=== PATIENT | female | born 1960 | race Caucasian/White ===

== ENCOUNTER 2022-06-28 14:25 | Outpatient (REF) | payer OTHER, SELFPAY ==
--- NOTE | ~2022-06-28 | MM_ITS ---
EXAMINATION: MM SCREENING DIGITAL BREAST TOMOSYNTHESIS, BILATERAL CLINICAL INFORMATION: Screening. Asymptomatic. The lifetime risk of breast cancer based on the Tyrer-Cuzick Model is 4.1%. COMPARISON: Mammography: July 31, 2017 and October 01, 2014 TECHNIQUE: Digital breast tomosynthesis is performed in both the craniocaudal and mediolateral oblique views along with computer-aided detection (CAD). Synthesized 2D images are generated from the tomosynthesis. FINDINGS: The breasts are almost entirely fatty (ACR BI-RADS breast composition Category a). There are no significant masses, abnormal calcifications, or other abnormalities. MM/MM tomosynthesis screening BI IMPRESSION: No significant change in ASSESSMENT: BI-RADS 1: Negative RECOMMENDATION: Routine annual mammography screening. This patient's information was entered into a reminder system with a target due date for their next mammogram.
== END 2022-06-28 14:26 | disposition home or self-care (01) ==
LOC: HO.MAMMO 14:25
PROVIDERS: PCP Nurse Practitioner Adult Health; Visit Provider Obstetrics & Gynecology
DX: Z12.31 Encounter for screening mammogram for malignant neoplasm of breast (principal)
CPT/HCPCS: 77063; 77067

== ENCOUNTER 2022-07-25 11:19 | Outpatient (REF) | payer OTHER, SELFPAY ==
--- NOTE | ~2022-07-25 | XR_ITS ---
EXAMINATION: XR CHEST CLINICAL INFORMATION: Pneumonia COMPARISON: Previous chest x-ray most recent May [address] January 2019 TECHNIQUE: 2 views of the chest were obtained. FINDINGS: The cardiac and mediastinal contours are stable. The lungs are clear. No pleural effusion or pneumothorax. Degenerative changes of the spine. Bilateral shoulder replacements. XR/XR chest 2V IMPRESSION: No evidence for acute disease in the chest.
== END 2022-07-25 11:20 | disposition home or self-care (01) ==
LOC: HO.HMGCX 11:19
PROVIDERS: Visit Provider Internal Medicine
DX: J18.9 Pneumonia, unspecified organism (principal)
CPT/HCPCS: 71046

== ENCOUNTER 2022-11-07 16:17 | Outpatient (AMB) | payer OTHER, SELFPAY ==
--- NOTE | 2022-11-07 16:23 | MHC.OFFWIV ---
Intake Vital Signs 11/07/22 16:24 Height 5 ft 4 in BP 106/72 Blood Pressure Location Lt brachial Position Sitting Pulse 84 Pulse Source Pulse Oximeter Temp 95.7 F L Temp Source Temporal Artery Scan Pulse Oximetry (%) 98 Oxygen Delivery Method Room Air Intake Visit Reasons: EP fever, shortness of breath - masked (lobby) Intake Note: Pt is here c/o body aches, cough and chills earlier this week. Pt states she now has SOB since yesterday. Patient Tobacco Use Status: Never used Tobacco Allergies muscle relaxers Adverse Reaction (Mild, Uncoded 11/08/22 09:38) panic Medication List - Last Reconciled 11/08/22 by Elvis Damico MD albuterol sulfate 90 mcg/actuation (Ventolin HFA) 1 inh inhalation QID PRN aspirin 0 mg PO azithromycin take 500 mg today (day 1), then 250 mg for 4 days (days 2-5) PO buprenorphine HCl 16 mg sublingual DAILY gabapentin mg PO lisinopril 10 mg PO DAILY omeprazole 20 mg PO BID prednisone 60 mg (3 x 20 mg) PO DAILY venlafaxine ER 150 mg PO DAILY venlafaxine ER 37.5 mg PO DAILY venlafaxine ER 75 mg PO DAILY Do you need a note to return to daycare/school/sports/work: No HPI HPI Comments History of Present Illness Details Patient presents for a sick visit. Reporting symptoms of sinus congestion, sore throat and difficulty swallowing. Low-grade fever. No family member is sick. No recent travel. Patient reports symptoms of malaise and fatigue. [facility] Social History Patient Tobacco Use Status: Never used Tobacco Physical Exam Vital Signs: Last Vital Signs Temp 95.7 F L 11/07/22 16:24 Pulse 84 11/07/22 16:24 BP 106/72 11/07/22 16:24 Pulse Ox 98 11/07/22 16:24 Oxygen Delivery Method Room Air 11/07/22 16:24 Const General: cooperative and healthy appearing Nutritional Appearance: well nourished Orientation/consciousness: patient oriented x3 Limitations: no limitations HEENT Head: Yes normal to inspection Eyes General: appearance normal, both eyes and all related structures Neck Neck: Yes normal visual inspection Chest Chest palpation & inspection: normal palpation of entire chest wall Resp Effort & Inspection: normal respiratory effort Neuro General: patient oriented x3 Assessment & Plan Assessment & Plan (1) Upper respiratory tract infection: Code(s): J06.9 - Acute upper respiratory infection, unspecified Plan: Antibiotics ordered. Increase fluid intake. Tylenol for aches and pains. If symptoms worsen, follow-up here for a recheck. Medications: New prednisone 60 mg (3 x 20 mg) PO DAILY 9 tabs 0RF Refilled albuterol sulfate 90 mcg/actuation (Ventolin HFA) 1 inh inhalation QID PRN 8.5 grams 1RF shortness of breath or wheezing azithromycin take 500 mg today (day 1), then 250 mg for 4 days (days 2-5) PO 6 tabs 0RF Coding Level of Care Code Est Pt Level 3 (50529) Diagnoses Upper respiratory tract infection J06.9
[2022-11-07 16:24] VITALS: BP 106/72; PULSE 84; TEMP 35.4; O2SAT 98
== END 2022-11-07 16:31 | disposition home or self-care (01) ==
LOC: HO.HMGWI 16:18
PROVIDERS: PCP Nurse Practitioner Adult Health
DX: J06.9 Acute upper respiratory infection, unspecified (principal)
CPT/HCPCS: 99213

== ENCOUNTER 2022-11-19 14:48 | Outpatient (AMB) | payer OTHER, SELFPAY ==
--- NOTE | 2022-11-19 15:50 | AM.OFFWIN_ITS ---
Intake Vital Signs 11/19/22 15:51 Height 5 ft 4 in Weight 255 lb BMI 43.8 BP 140/80 H Blood Pressure Location Lt brachial Position Sitting Pulse 110 H Pulse Source Pulse Oximeter Temp 97.8 F Temp Source Temporal Artery Scan Pulse Oximetry (%) 100 Oxygen Delivery Method Room Air Intake Visit Reasons: EP ?bronchitis [phone] Intake Note: pt is here for c/o bronchitis with phelm and has low grade temp at night Patient Tobacco Use Status: Never used Tobacco Allergies muscle relaxers Adverse Reaction (Mild, Uncoded 11/19/22 15:51) panic Do you need a note to return to daycare/school/sports/work: No HPI EP ?bronchitis [phone] HPI Details 62-year-old female presents to the office for a sick visit. Patient is reporting that she has not fully recovered. Continues to have wheezing and shortness of breath. The wheezing is worse at night. The prednisone added help but symptoms returned when she stopped taking the medication. Appetite is normal. No urinary incontinence. [facility] Social History Patient Tobacco Use Status: Never used Tobacco Physical Exam Vital Signs: Last Vital Signs Temp 97.8 F 11/19/22 15:51 Pulse 110 H 11/19/22 15:51 BP 140/80 H 11/19/22 15:51 Pulse Ox 100 11/19/22 15:51 Oxygen Delivery Method Room Air 11/19/22 15:51 BMI result Body Mass Index 43.8 Const General: cooperative and healthy appearing Nutritional Appearance: well nourished Orientation/consciousness: patient oriented x3 Limitations: no limitations HEENT Head: Yes normal to inspection Eyes General: appearance normal, both eyes and all related structures Neck Neck: Yes normal visual inspection Chest Chest palpation & inspection: normal palpation of entire chest wall Resp Other: Scattered wheeze bilaterally. Neuro General: patient oriented x3 Assessment & Plan Assessment & Plan (1) Upper respiratory tract infection: Code(s): J06.9 - Acute upper respiratory infection, unspecified Plan: Prednisone has been added to the regimen again. Albuterol has been continued. Patient was advised to come in the morning for a chest x-ray. Medications: New prednisone 6 pills by mouth day 1, 6 pills by mouth day 2, 5 pills by mouth day 3, 4 pills by mouth day 4, 3 pills by mouth day 5, 2 pills by mouth day 6, 1 pill by mouth day 7 and 1 pill by mouth day 8. 10 mg PO DAILY 28 tabs 0RF Coding Level of Care Code Est Pt Level 4 (93380) Diagnoses Upper respiratory tract infection J06.9
[2022-11-19 15:51] VITALS: BP 140/80; PULSE 110; TEMP 36.6; O2SAT 100; BMI 43.8
== END 2022-11-19 16:31 | disposition home or self-care (01) ==
PROVIDERS: PCP Nurse Practitioner Adult Health; Visit Provider Internal Medicine
DX: J06.9 Acute upper respiratory infection, unspecified (principal)
CPT/HCPCS: 99214

== ENCOUNTER 2024-09-18 17:53 | Emergency (ER) | payer OTHER, SELFPAY ==
--- NOTE | ~2024-09-18 | CT_ITS ---
CLINICAL HISTORY: Severe Abd pain, bloated, R O SBO, pancrea,perf CT abdomen and pelvis with contrast Comparison: None Findings: No consolidation or effusion. The gallbladder is surgically absent. The solid organs are within normal limits. No hydronephrosis or hydroureter. No bowel obstruction, pneumoperitoneum, or pneumatosis. There are postsurgical changes compatible with gastric bypass. There is mild bowel wall thickening involving the afferent limb of jejunum distal to the gastro jejunostomy site with mild adjacent edema. This bowel loop is underdistended. Mild edema also identified adjacent to the afferent limb of the stomach. There is minimal fluid along the right pericolic gutter. Bilateral hip prostheses are in place, producing artifact which limits evaluation of the pelvic structures. The bladder and majority of the uterus are not well visualized on this examination due to artifact. Minimal free fluid present within the pelvis. 2.7 cm low-attenuation right adnexal cyst. Normal appendix. No acute fracture visualized. There is grade 1 anterolisthesis of L4 on L5. Multilevel degenerative disc disease/vacuum disc phenomenon present at the thoracolumbar spine. IMPRESSION: 1. Postsurgical changes compatible with gastric bypass with mild edema adjacent to the afferent limb of the stomach and mild bowel wall thickening and adjacent edema involving the loop of jejunum distal to the gastro jejunostomy site. These findings may be related to a nonspecific gastro enteritis. No bowel obstruction demonstrated. No free intraperitoneal air. 2. Minimal fluid identified along the right pericolic gutter and also dependently within the pelvis, possibly reactive in etiology given the inflammatory changes at the upper abdomen. This document has been electronically signed by: Luis Govea MD on 09/18/2024 23:05:14
[2024-09-18 18:09] VITALS: BP 114/96; BP 131/100; PULSE 71; PULSE 80; RESP 18; TEMP 36.7; O2SAT 97; O2SAT 99; BMI 44.5
[2024-09-18 18:17] VITALS: BP 134/84; PULSE 81; RESP 20; O2SAT 100
--- NOTE | 2024-09-18 18:55 | ED_ITS ---
HPI - Abdominal Pain General Chief Complaint: Abdominal Pain Stated Complaint: ?bowel obstruction Time Seen by Provider: 09/18/24 18:47 Source: patient Mode of arrival: ambulatory Limitations: no limitations History of Present Illness ED Provider: Dr. Cristobal Shah HPI narrative: 64-year-old female with a history of osteoarthritis, gastric bypass 2022 in [place], cholecystectomy 2023 on Zepbound ( GLP-1) for weight loss who presents emergency department for evaluation of intermittent abdominal cramping x1 week. Patient states she drank an ice coffee at around 14:00 hours and then developed sudden onset of severe , epigastric and diffuse abdominal pain with a bloated sensation. Patient states she has been constipated over the last week but did have a small bowel movement this morning. Her pain is greater than 10/10. She has nausea with no vomiting. This the patient's 1st episode of this type of pain. The patient states that she has been on Zepbound for proximally 3 months in his lost 38 lb.The patient does have a history of opiate use disorder and is on buprenorphine. Related Data Home Medications ?Medication ?Instructions ?Recorded ?Confirmed gabapentin 300 mg capsule mg PO 01/09/22 11/08/22 lisinopril 10 mg tablet 10 mg PO DAILY 07/25/22 11/08/22 omeprazole 20 mg capsule,delayed 20 mg PO BID 07/25/22 11/08/22 release venlafaxine 150 mg 150 mg PO DAILY 07/25/22 11/08/22 capsule,extended release 24 hr venlafaxine 37.5 mg 37.5 mg PO DAILY 07/25/22 11/08/22 capsule,extended release 24 hr venlafaxine 75 mg capsule,extended 75 mg PO DAILY 07/25/22 11/08/22 release 24 hr Previous Rx's ?Medication ?Instructions ?Recorded albuterol sulfate 90 mcg/actuation 1 inh inhalation QID PRN shortness 11/07/22 aerosol inhaler (Ventolin HFA) of breath or wheezing #8.5 grams prednisone 10 mg tablet 10 mg PO DAILY #28 tabs 11/19/22 omeprazole 40 mg capsule,delayed 40 mg PO DAILY #90 caps 09/19/24 release oxycodone 5 mg tablet 5 mg PO BID PRN pain #8 tabs 09/19/24 Allergies Allergy/AdvReac Type Severity Reaction Status Date / Time muscle relaxers AdvReac Mild panic Uncoded 09/18/24 18:16 Review of Systems Review of Systems Yes all other systems are reviewed and are negative [facility] Past Medical History [facility] Narrative: Social history: She is Social History Social History Alcohol intake: never Patient Tobacco Use Status: Never used Tobacco Smoked in Last 30 Days: No Advance Directives: No Advance Directives Information Provided: Yes Physical Exam ED Vital Signs: Vital Signs - 24 hr 09/18/24 18:09 09/18/24 18:17 09/18/24 19:35 Temperature 98.1 F Pulse Rate 80 81 81 Respiratory Rate 18 20 18 Blood Pressure 114/96 H 134/84 144/68 H Pulse Oximetry 97 100 97 Oxygen Delivery Method Room Air Room Air Room Air 09/18/24 20:21 09/18/24 23:47 09/19/24 00:00 Temperature 99.8 F 99.6 F Pulse Rate 77 92 100 Respiratory Rate 18 20 20 Blood Pressure 100/61 126/85 139/79 Pulse Oximetry 96 95 96 Oxygen Delivery Method Room Air Room Air Room Air BMI result Body Mass Index 44.5 Vital signs were normal Exam: General: Awake, alert , appears to be in severe distress secondary to her pain, weight 114 kg, elevated BMI 44.5 kg per m2 Head: Normocephalic, atraumatic EENT: PERRL, Lids normal, sclera normal, conjunctiva normal, nose normal , ears normal, throat without erythema or exudates Neck: Supple, no adenopathy Lung: breath sounds symmetric, no wheezing, rales or rhonchi Chest: symmetric movement, nontender Heart: regular rate and rhythm, normal S1, S2 no murmurs or rubs Abdomen: Soft, distended, hyperactive bowel sounds, moderate to severe diffuse abdominal tenderness Back: no vertebral tenderness, no CVAT Extremities: no deformities, moves all extremities symmetrically Neuro: Awake, alert, oriented, normal speech, cranial nerves intact, moves all extremities symmetrically Psych: Pleasant, cooperative Medical Decision Making Medical Decision Making [facility] Narrative: 64-year-old female with a history of osteoarthritis, gastric bypass 2022 in [place], cholecystectomy 2023 on Zepbound ( GLP-1) for weight loss who presents emergency department for evaluation of intermittent abdominal cramping x1 week. Patient states she drank an ice coffee at around 14:00 hours and then developed sudden onset of severe , epigastric and diffuse abdominal pain with a bloated sensation. Patient states she has been constipated over the last week but did have a small bowel movement this morning. Her pain is greater than 10/10. She has nausea with no vomiting. This the patient's 1st episode of this type of pain. The patient states that she has been on Zepbound for proximally 3 months in his lost 38 lb.The patient does have a history of opiate use disorder and is on buprenorphine. Vital signs were unremarkable. Examination revealed that she was in distress secondary to her pain, she has diffuse abdominal tenderness with hyperactive bowel sounds, she does appear to be bloated. Differential diagnosis: ?Includes but is not limited to pancreatitis, bowel obstruction, bowel perforation, internal incarcerated hernia, Course: 20:48 The patient patient got minimal relief of her pain with Dilaudid 1 mg IV therefore she was given a 2nd dose of Dilaudid 2 mg IV. The patient's blood work and CT scan are pending. At the end of my shift, the patient's care was turned over to my colleague, Dr. Yana Bustos. I received sign-out from my colleague Dr. Shah My interpretation of labs: Patient's white blood cell count 14.6, normal hematology and chemistry. LFTs are slightly bumped, AST 62, ALT 85. Normal lipase. CT scan of the abdomen shows the postsurgical changes compatible with a gastric bypass. Patient has mild edema adjacent to the a friend limb of the stomach and mild bowel wall thickening. Findings may be related to nonspecific gastroenteritis, no small bowel obstruction, no free air. I discussed the above-mentioned with the patient And her . Patient states that overall she feels better but she still having abdominal pain despite several doses of Dilaudid. I discussed with the patient that we can admit her for pain control and possibly a GI consult in the morning. Patient states that she prefers to be discharged home, states she would like to sleep in her own bed. Patient states that if she does not get any better, she will return. However, she would like to try going home. Patient states that she has a gastroenterology at [facility]. Prior to discharge, patient requesting 1 more dose of pain medication. Patient was also given a dose of Protonix. Patient states that she used to take omeprazole and used to control the abdominal pain fairly well. Patient has been out of omeprazole for several months. Also, patient states that a few months ago she had an upper endoscopy done, she was told that she has an ulcer. I considered starting the patient on antibiotics for density scan finding of possible gastroenteritis. However, patient has not had any vomiting or diarrhea. Admission/Observation Consideration of admission/observation: Escalation of care including admission/observation considered (Yes) admission was recommended and offered, patient respectively declined at this time. Prefers to go home and agrees to return to the hospital and consider admission if she has no improvement Lab Data MDM Lab Attestation statement: I reviewed the patient's lab results. 09/18/24 21:13 09/18/24 21:13 Labs: Lab Results 09/18/24 Range/Units 21:13 WBC 14.6 H (4.8-10.8) X10*3/uL RBC 4.49 (4.20-5.50) X10*6/uL Hgb 14.0 (12.0-16.0) g/dl Hct 41.2 (37.0-47.0) % MCV 91.8 (80.0-98.0) fL MCH 31.2 (27.0-33.0) pg MCHC 34.0 (31.0-35.0) g/dl RDW 12.9 (11.0-16.0) % Plt Count 300 (160-400) X10*3/uL MPV 9.0 L (9.4-12.3) fL Immature Gran % (Auto) 0.3 (0.0-0.4) % Neut % (Auto) 90.4 H (45-73) % Lymph % (Auto) 4.7 L (20-40) % [place] % (Auto) 3.9 (2-11) % Eos % (Auto) 0.2 (0-4) % Baso % (Auto) 0.5 (0-2) % Lymph # (Auto) 0.7 L (1.2-4.9) X10*3/uL [place] # (Auto) 0.6 (0.1-1.2) X10*3/uL Eos # (Auto) 0.0 (0.0-0.4) X10*3/uL Baso # (Auto) 0.1 (0.0-0.2) X10*3/uL Abs Immat Gran (auto) 0.04 H (0.00-0.03) X10*3/uL Absolute Neuts (auto) 13.2 H (2.0-8.3) x10*3/uL Absolute Nucleated RBC 0.000 (0.0-0.012) X10*3/uL Nucleated RBC % (auto) 0.0 (0.0-0.2) /100WBC Smear Tech's Comments VERIFIED ESR 10 (0-20) MM/HR PT 11.2 (10.9-12.4) SEC INR 1.0 (0.9-1.1) APTT 24.0 L (26.0-36.8) SEC Sodium 137 (135-145) mmol/L Potassium 4.4 (3.3-5.1) mmol/L Chloride 100 (96-108) mmol/L Carbon Dioxide 27 (22-29) mmol/L Anion Gap 14 (12-20) BUN 13 (9-16) mg/dL Creatinine 0.96 (0.5-1.4) mg/dL Estim Creat Clear Calc 73.9 Estimated GFR 59 Random Glucose 107 (60-115) mg/dL Lactic Acid 1.0 (0.5-2.0) mmol/L Calcium 9.5 (8.4-10.2) mg/dL Magnesium 1.9 (1.6-2.6) mg/dL Total Bilirubin 0.7 (0.0-1.0) mg/dL AST 62 H (5-31) U/L ALT 85 H (0-31) U/L Alkaline Phosphatase 75 (39-117) U/L C-Reactive Protein 0.34 (< or = 0.50) mg/dL Total Protein 6.9 (6.5-8.0) g/dL Albumin 4.3 (3.5-5.0) g/dL Lipase 63 (8-78) U/L Independent Interpretation I performed an independent interpretation of an: CT Scan Radiology Impression Discussion of test interpretation with radiology: I have reviewed the radiologist's reading. Radiologist Impression: 1. Postsurgical changes compatible with gastric bypass with mild edema adjacent to the afferent limb of the stomach and mild bowel wall thickening and adjacent edema involving the loop of jejunum distal to the gastro jejunostomy site. These findings may be related to a nonspecific gastro enteritis. No bowel obstruction demonstrated. No free intraperitoneal air. 2. Minimal fluid identified along the right pericolic gutter and also dependently within the pelvis, possibly reactive in etiology given the inflammatory changes at the upper abdomen. Medications Administered Discontinued Medications Generic Name Dose Route Start Last Admin Trade Name Freq PRN Reason Stop Dose Admin Hydromorphone HCl 1 mg 09/18/24 18:57 09/18/24 19:24 Hydromorphone Hcl 1 Mg/Ml Syringe IVPUSH 09/18/24 18:58 1 mg ONCE STA Administration Protocol Hydromorphone HCl 2 mg 09/18/24 20:47 09/18/24 21:12 Hydromorphone Hcl 2 Mg/Ml Vial IVPUSH 09/18/24 20:48 2 mg ONCE ONE Administration Protocol Sodium Chloride 1,000 mls @ 999 mls/hr 09/18/24 18:57 09/18/24 21:19 Ns IV 09/18/24 19:57 Infused .Q1H1M STA Infusion Iohexol 100 ml 09/18/24 21:55 09/18/24 21:56 Iohexol 350 Mg/Ml 100 Ml Infus..Btl IV 09/18/24 21:56 85 ml ONCE ONE Administration Ketorolac Tromethamine 15 mg 09/18/24 18:57 09/18/24 19:24 Ketorolac Tromethamine 15 Mg/Ml Vial IVPUSH 09/18/24 18:58 15 mg ONCE STA Administration Ondansetron HCl 4 mg 09/18/24 18:57 09/18/24 19:24 Ondansetron Hcl 4 Mg/2 Ml Vial IVPUSH 09/18/24 18:58 4 mg ONCE ONE Administration Critical Care Time Critical Care Time Critical Care Time: Yes Total Critical Care Time: 60 Attestation: I have personally provided critical care time. Time includes review of lab data, radiology results, discussion with consultants, and monitoring for potential decompensation. Intervention performed as documented. Discharge Plan Discharge Clinical Impression: Abdominal pain, Gastroenteritis Patient Disposition: Home, Self-Care Instructions: Abdominal Pain (ED) Additional Instructions: Please follow-up with your primary care physician tomorrow. If you have any worsening or new symptoms, please return to the emergency room or call 911 Prescriptions: New oxycodone 5 mg tablet 5 mg PO BID PRN (Reason: pain) Qty: 8 0RF Rx Instructions: Partial Fill upon patient request. omeprazole 40 mg capsule,delayed release(DR/EC) 40 mg PO DAILY Qty: 90 0RF No Action venlafaxine 150 mg capsule,extended release 24hr 150 mg PO DAILY venlafaxine 37.5 mg capsule,extended release 24hr 37.5 mg PO DAILY venlafaxine 75 mg capsule,extended release 24hr 75 mg PO DAILY omeprazole 20 mg capsule,delayed release(DR/EC) 20 mg PO BID lisinopril 10 mg tablet 10 mg PO DAILY albuterol sulfate [Ventolin HFA] 90 mcg/actuation HFA aerosol inhaler 1 inh inhalation QID PRN (Reason: shortness of breath or wheezing) Qty: 8.5 1RF gabapentin 300 mg capsule PO prednisone 10 mg tablet 10 mg PO DAILY Qty: 28 0RF Rx Instructions: 6 pills by mouth day 1, 6 pills by mouth day 2, 5 pills by mouth day 3, 4 pills by mouth day 4, 3 pills by mouth day 5, 2 pills by mouth day 6, 1 pill by mouth day 7 and 1 pill by mouth day 8. Print Language: Citizen Of [place]
--- NOTE | 2024-09-18 19:05 | PC.NURSE ---
Assumed care of this Pt at this time.
[2024-09-18] MEDS: HYDROmorphone HCl 1 MG/ML SYRINGE IVPUSH (19:24)
[2024-09-18] MEDS: Ketorolac Tromethamine 15 MG/ML VIAL IVPUSH (19:24)
[2024-09-18] MEDS: ondansetron HCL 4 MG/2 ML VIAL IVPUSH (19:24)
[2024-09-18] MEDS: 0.9 % Sodium Chloride 1,000 ML 999 ML IV (19:25)
[2024-09-18 19:35] VITALS: BP 144/68; PULSE 81; RESP 18; O2SAT 97
[2024-09-18 20:21] VITALS: BP 100/61; PULSE 77; RESP 18; O2SAT 96
[2024-09-18] MEDS: HYDROmorphone HCl 2 MG/ML VIAL IVPUSH (21:12)
[2024-09-18 21:21] LABS: Basophils Absolute Auto 0.1 X10*3/uL (0.0-0.2); Basophils Percent Auto 0.5 % (0-2); Eosinophils Percent Auto 0.2 % (0-4); Hematocrit 41.2 % (37.0-47.0); Imm Gran Abs Auto 0.04 X10*3/uL (0.00-0.03); Imm Gran Pct Auto 0.3 % (0.0-0.4); Lymphocytes Absolute Auto 0.7 X10*3/uL (1.2-4.9); Lymphocytes Percent Auto 4.7 % (20-40); MANUAL DIFF FLAG SCAN; Mean Corpuscular Hemoglobin 31.2 pg (27.0-33.0); Mean Corpuscular Volume 91.8 fL (80.0-98.0); Monocytes Absolute Auto 0.6 X10*3/uL (0.1-1.2); Monocytes Percent Auto 3.9 % (2-11); Neutrophils Absolute Auto 13.2 x10*3/uL (2.0-8.3); Neutrophils Percent Auto 90.4 % (45-73); Platelet Count 300 X10*3/uL (160-400); Red Blood Count 4.49 X10*6/uL (4.20-5.50); Red Cell Distribution Width 12.9 % (11.0-16.0); SCAN SMEAR FLAG 1; White Blood Count 14.6 X10*3/uL (4.8-10.8)
[2024-09-18 21:27] LABS: Prothrombin Time 11.2 SEC (10.9-12.4)
[2024-09-18 21:33] LABS: Alanine Aminotransferase 85 U/L (0-31); Albumin Level 4.3 g/dL (3.5-5.0); Alkaline Phosphatase 75 U/L (39-117); Anion Gap 14 (12-20); Aspartate Amino Transferase 62 U/L (5-31); Bilirubin Total 0.7 mg/dL (0.0-1.0); Blood Urea Nitrogen 13 mg/dL (9-16); C Reactive Protein 0.34 mg/dL (< or = 0.50); Calcium 9.5 mg/dL (8.4-10.2); Carbon Dioxide 27 mmol/L (22-29); Chloride 100 mmol/L (96-108); Creatinine Clr Calc Pharmacy 73.9; Estimated Glomerular Filt Rate 59; Glucose Random 107 mg/dL (60-115); Lipase 63 U/L (8-78); Magnesium 1.9 mg/dL (1.6-2.6); Potassium 4.4 mmol/L (3.3-5.1); Sodium 137 mmol/L (135-145); Total Protein 6.9 g/dL (6.5-8.0)
--- NOTE | 2024-09-18 21:39 | PC.NURSE ---
Pt ambulating to bathroom w/ assistance of spouse slow steady gait
[2024-09-18 21:40] LABS: SLIDE REVIEW VERIFIED
[2024-09-18] MEDS: iohexoL 350 MG/ML 100 ML INFUS..BTL IV (21:56)
[2024-09-18 22:10] LABS: Erythrocyte Sedimentation Rate 10 MM/HR (0-20)
[2024-09-18 23:47] VITALS: BP 126/85; PULSE 92; RESP 20; TEMP 37.7; O2SAT 95
[2024-09-19] VITALS: BP 139/79; PULSE 100; RESP 20; TEMP 37.6; O2SAT 96
[2024-09-19] MEDS: Morphine Sulfate 4 MG/ML CARTRIDGE IVPUSH (01:54)
[2024-09-19] MEDS: Magnesium Hydrox/Alum Hydrox 30 ML ORAL.SUSP PO (01:55)
[2024-09-19] MEDS: Pantoprazole Sodium 40 MG/10 ML VIAL IVPUSH (01:55)
[2024-09-19] MEDS: Lidocaine HCl Viscous 2 % 15 ML SOLUTION MUCOUS MEM (01:55)
[2024-09-19 02:16] VITALS: BP 139/79; PULSE 100; RESP 20; TEMP 37.6; O2SAT 96
== END 2024-09-19 02:18 | disposition home or self-care (01) ==
PROVIDERS: Emergency Medicine Emergency Medical Services; Emergency Provider Emergency Medicine
DX: K52.9 Noninfective gastroenteritis and colitis, unspecified (principal); R10.9 Unspecified abdominal pain; R10.13 Epigastric pain; R11.0 Nausea
CPT/HCPCS: 36415; 74177; 80053; 83605; 83690; 83735; 85025; 85610; 85652; 85730; 86140; 96361; 96374; 96375; 96376; 99285; J1171; J1885; J2270; J2405; J2470; Q9967

== ENCOUNTER → 2024-09-18 18:58 | Outpatient (BNV) | payer OTHER, SELFPAY | PROVIDERS: Emergency Provider Emergency Medicine; Visit Provider Radiology Diagnostic Radiology | DX: R18.8 Other ascites (principal) | CPT/HCPCS: 74177 ==

== ENCOUNTER 2024-09-19 12:39 | Emergency (ER) | payer OTHER, SELFPAY ==
[2024-09-19] VITALS (15 sets, daily range): BP systolic 110–154; BP diastolic 71–95; PULSE 88–124; RESP 20–24; TEMP 36.9–38.6; O2SAT 90–97; BMI 38.1
--- NOTE | ~2024-09-19 | CT_ITS ---
CLINICAL HISTORY: bariactric, epigastric pain, N V CT abdomen without contrast Comparison: CT/SR - CT ABDOMEN PELVIS W IV CON - 09/18/24 21:52 EDT Findings: Multiple foci of atelectasis at the lung bases. Small hiatal hernia. Moderate pancreatic volume loss. Remaining abdominal organs are unremarkable. Prior cholecystectomy. There is contrast present to the level of the proximal colon. There is no evidence of high-grade small bowel obstruction. There is moderate fecal retention within the colon. Status post gastric bypass. Interval worsening of edema within the mesentery adjacent to the stomach and proximal jejunum. Multiple tiny pockets of free intraperitoneal air, new since the prior study. Thickening of the wall of the jejunum at the level of the left upper quadrant with interval worsening since the prior study. There is a small amount of abdominal and pelvic free fluid with interval increase since the prior study. No acute fracture. IMPRESSION: 1. There is a small amount of free intraperitoneal air compatible with perforated viscus or anastomotic leak. 2. There is enteritis of the proximal jejunum at the level of the left upper quadrant. 3. There is a small amount of abdominal and pelvic free fluid with interval increase since the prior study. This document has been electronically signed by: Rosy Castelan MD on 09/19/2024 20:49:01
--- NOTE | ~2024-09-19 | XR_ITS ---
CLINICAL HISTORY: epigastric pain 2 view chest x-ray Comparison: None Findings: No consolidation or effusion. Heart size is normal. Status post bilateral shoulder replacement. No acute fracture. IMPRESSION: 1. No acute findings. This document has been electronically signed by: Rosy Castelan MD on 09/19/2024 13:57:10
--- NOTE | 2024-09-19 12:57 | ED.ABDPAIN ---
HPI - Abdominal Pain General Chief Complaint: Abdominal Pain Stated Complaint: ABD PAIN/BLOATING,SEEN T-1 FOR SAME PER EMS Time Seen by Provider: 09/19/24 12:57 Source: patient and family ( at bedside corroborating history) Mode of arrival: EMS Limitations: no limitations History of Present Illness ED Provider: Eliazar Bentley PA-C HPI narrative: 64-year-old female with medical history of osteoarthritis, gastric bypass 2002 in [place], cholecystectomy 2023 on Zepbound ( GLP-1) for weight loss, HX of opiate use disorder on buprenorphine presents to the ED due to abdominal pain. Patient was seen in the department yesterday for sudden onset of severe abdominal pain with bloating and nausea. Patient had a workup containing CT abdomen with IV contrast which revealed some mild edema and mild bowel wall thickening showing possible gastroenteritis. Patient was given several doses of Dilaudid for pain management, and offered for admission for GI consult but declined stating that she would like to go home for self care and follow up outpatient. Patient states she got home around 230 this morning from the Department and went to sleep in a recliner chair with heating pad on her stomach. She states she woke up sometime this morning and started to feel some abdominal pain which she took a dose of oxycodone which was prescribed to her from the Department yesterday. She states after she took a dose of oxycodone her pain became significantly worse, with severe epigastric pain radiating into breast to bone and to her her left shoulder with onset of cold sweats. She states she moved her bowels this morning but was very small volume. Denies shortness of breath denies bloody or bilious vomiting denies black/tarry stool denies urinary symptoms. MD elicited complaint: abdominal pain Pertinent past history: other (Gastric bypass in 2002) Onset (ago): hour(s) Pain Consistency: constant Location: epigastric Severity: moderate Quality: cramping and fullness Radiation: other (Left shoulder, breastbone) Relieving factors: nothing Associated symptoms: nausea and other (Cold sweat) Treatments prior to arrival: other (venlafaxine, gabapentin, 5mg oxycodone around 3am ) Related Data Home Medications ?Medication ?Instructions ?Recorded ?Confirmed gabapentin 300 mg capsule mg PO 01/09/22 11/08/22 lisinopril 10 mg tablet 10 mg PO DAILY 07/25/22 11/08/22 omeprazole 20 mg capsule,delayed 20 mg PO BID 07/25/22 11/08/22 release venlafaxine 150 mg 150 mg PO DAILY 07/25/22 11/08/22 capsule,extended release 24 hr venlafaxine 37.5 mg 37.5 mg PO DAILY 07/25/22 11/08/22 capsule,extended release 24 hr venlafaxine 75 mg capsule,extended 75 mg PO DAILY 07/25/22 11/08/22 release 24 hr Previous Rx's ?Medication ?Instructions ?Recorded albuterol sulfate 90 mcg/actuation 1 inh inhalation QID PRN shortness 11/07/22 aerosol inhaler (Ventolin HFA) of breath or wheezing #8.5 grams prednisone 10 mg tablet 10 mg PO DAILY #28 tabs 11/19/22 omeprazole 40 mg capsule,delayed 40 mg PO DAILY #90 caps 09/19/24 release oxycodone 5 mg tablet 5 mg PO BID PRN pain #8 tabs 09/19/24 Allergies Allergy/AdvReac Type Severity Reaction Status Date / Time muscle relaxers AdvReac Mild panic Uncoded 09/19/24 12:55 Review of Systems Review of Systems CONST: Negative for fever, body aches and chills. POS cold sweats HENT: Negative for neck pain/stiffness, headache, congestion, sore throat, swelling. EYES: Negative for discharge/pain or vision changes. RESP: Negative for cough/hemoptysis and shortness of breath. CV: Negative chest pain, difficulty breathing, palpitations. POS chest pain ABD: POS pain, nausea. Negative vomiting. : Negative increase frequency, dysuria, blood in urine or stool. MUSC: Negative for muscle aches, edema. SKIN: Negative rash, lesions/sores. NEURO: Negative headache, dizziness, weakness. Yes all other systems are reviewed and are negative PMFSH Past Medical History Attestation statement: The following information was validated with the patient. Source: old records reviewed, obtained from family ( at bedside) and nursing notes reviewed Social History Social History Alcohol intake: never Patient Tobacco Use Status: Never used Tobacco Smoked in Last 30 Days: No Use of substances other than those prescribed or required for medical reasons: No Advance Directives: No Advance Directives Information Provided: Yes Do you have a plan to hurt others: No Plan Patient : No Physical Exam ED Vital Signs: Vital Signs - 24 hr 09/19/24 12:52 09/19/24 12:56 09/19/24 13:45 Temperature 98.5 F 98.5 F Pulse Rate 88 88 Respiratory Rate 20 20 20 Blood Pressure 145/79 H 145/79 H Pulse Oximetry 95 95 Oxygen Delivery Method Room Air Room Air Oxygen Flow Rate 09/19/24 14:11 09/19/24 15:15 09/19/24 15:15 Temperature Pulse Rate 93 Respiratory Rate 20 24 H Blood Pressure 144/81 H Pulse Oximetry 90 L 97 Oxygen Delivery Method Room Air Nasal Cannula Oxygen Flow Rate 3 09/19/24 16:40 09/19/24 16:56 09/19/24 19:20 Temperature 98.4 F 100.4 F Pulse Rate 106 H 124 H Respiratory Rate 20 24 H 20 Blood Pressure 154/90 H 146/95 H Pulse Oximetry 95 93 Oxygen Delivery Method Nasal Cannula Room Air Oxygen Flow Rate 3 09/19/24 19:51 09/19/24 21:54 09/19/24 22:03 Temperature 101.4 F H Pulse Rate 123 H 123 H Respiratory Rate 21 H 20 Blood Pressure 153/91 H 134/80 131/80 Pulse Oximetry 96 95 Oxygen Delivery Method Room Air Nasal Cannula Oxygen Flow Rate 09/19/24 22:18 09/19/24 22:49 Temperature 99.8 F Pulse Rate 110 H 101 H Respiratory Rate 22 H 22 H Blood Pressure 133/74 138/85 Pulse Oximetry 94 94 Oxygen Delivery Method Nasal Cannula Nasal Cannula Oxygen Flow Rate BMI result Body Mass Index 38.1 GENERAL APPEARANCE: ?AxOx4, mild distress due to abdominal pain, mildly diaphoretic. HEENT: ?NC, AT. dry mucous membranes. EOMI, clear conjunctiva, oropharynx clear. HEART:? Normal rate and regular rhythm, normal S1/S1, no m/r/g LUNGS:? CTAB, moving air well. No crackles or wheezes are heard. ABDOMEN: ?diffusely tender, mildly distended with hypoactive bowel sounds heard. BACK: No CVAT, no obvious deformity. EXTREMITIES: ?Without cyanosis, clubbing or edema. NEUROLOGICAL: ?Grossly nonfocal. Alert and oriented, moving all 4 extremities. Observed to ambulate with normal gait. Skin: ?Warm and dry without any rash. Course Reevaluation(s) Reevaluation #1: I was informed the patient's CT scan showed a small amount of free air, I immediately sent a priority tiger text to General surgery, Dr Hutton and re-evaluated the patient. She continues to complain of pain, he is she is slightly tachycardic, but her blood pressure is stable. Time: 21:13 Reevaluation #2: Discussed with general surgery, Dr. Hutton who recommends discussion with the bariatric as this is likely a bariatric, I discussed with Dr. Monreal who recommends transfer to tertiary facility. I discussed with the [facility] transfer line and am awaiting a call back. The patient did spike 0.4, I ordered additional IV fluids, pain medication and IV Tylenol for fever and pain. At this time, the patient does meet sepsis criteria, she was given 2 L normal saline, antibiotics, she does not meet severe sepsis. Sepsis focused exam performed Time: 21:53 Reevaluation #3: Received call back from [facility], Dr. Barnes who is a general surgeon, he reports that he is unable to manage this patient himself, he discuss with his colleagues and unfortunately there is no bariatric surgeon available at [facility] to help manage this patient either. I sent a call to [facility] to see if they would be willing to accept this patient. I also updated Dr. Monreal regarding the delay Time: 22:28 Additional Reevaluation(s): Patient was accepted in transfer to [facility] in into the bariatric surgical service. She was accepted by Dr. Guillory. Images were uploaded and a disc was provided. The patient will be brought straight to the OR Medical Decision Making Medical Decision Making MDM Narrative: 64-year-old female with medical history of osteoarthritis, gastric bypass 2002 in [place], cholecystectomy 2023 on Zepbound ( GLP-1) for weight loss, HX of opiate use disorder on buprenorphine presents to the ED due to abdominal pain. Patient was seen in the department yesterday for sudden onset of severe abdominal pain with bloating and nausea. Patient had a workup containing CT abdomen with IV contrast which revealed some mild edema and mild bowel wall thickening showing possible gastroenteritis. Patient was given several doses of Dilaudid for pain management, and offered for admission for GI consult but declined stating that she would like to go home for self care and follow up outpatient. Patient states she got home around 230 this morning from the Department and went to sleep in a recliner chair with heating pad on her stomach. She states she woke up sometime this morning and started to feel some abdominal pain which she took a dose of oxycodone which was prescribed to her from the Department yesterday. She states after she took a dose of oxycodone her pain became significantly worse, with severe epigastric pain radiating into breast to bone and to her her left shoulder with onset of cold sweats. She states she moved her bowels this morning but was very small volume. VSS, in mild distress due to abdominal pain, mildly diaphoretic, nontoxic appearing. On physical exam patient is exquisitely tender over epigastric region, with diffuse tenderness throughout the abdomen. Mildly distended and tympanic on percussion, hypoactive bowel sounds in all 4 quadrants. No rigidity, no guarding, no rebound tenderness. EKG without ST elevation/depression/T-wave inversions, initial troponin WNL-less likely ACS. Patient is severely uncomfortable due to abdominal pain will medicate with 1 mg IV Dilaudid, IV fluids, re-evaluation with CT abdomen with oral contrast to evaluate for possible anastomotic leak. Course 17:23- patient has ingested about half of oral contrast. Has been medicated an additional 2 times with 2mg IV Dilaudid for pain management. Patient states drinking the oral contrast is worsening her abdominal pain. We are encouraging patient to drink at least 3/4 of the solution to allow for best observation of the abdomen. Patient mildly tachycardic at 106 beats per minute, we will give 500 mL of lactated Ringer's IV fluids. 18:22- Patient has tolerated oral contrast and went in for CT abdomen/pelvis. Is requesting pain meds, will family and marriage counsellor patient on waiting for more medication. Patient signed out to my colleague Regulo Jalloh PA-C who will resume care. Patient is aware of change and understands plan. Differential Diagnosis Differential Diagnoses: The differential diagnosis associated with the presentation includes ACS Pancreatitis PUD Bariatric complications Pharmacologic adverse reaction (Zepbound) Admission/Observation Consideration of admission/observation: Escalation of care including admission/observation considered Lab Data MDM Lab Attestation statement: I reviewed the patient's lab results. 09/19/24 13:46 09/19/24 13:46 Labs: Lab Results 09/19/24 09/19/24 Range/Units 13:46 20:17 WBC 9.9 (4.8-10.8) X10*3/uL RBC 4.50 (4.20-5.50) X10*6/uL Hgb 14.1 (12.0-16.0) g/dl Hct 40.4 (37.0-47.0) % MCV 89.8 (80.0-98.0) fL MCH 31.3 (27.0-33.0) pg MCHC 34.9 (31.0-35.0) g/dl RDW 13.1 (11.0-16.0) % Plt Count 328 (160-400) X10*3/uL MPV 9.0 L (9.4-12.3) fL Immature Gran % (Auto) 0.4 (0.0-0.4) % Neut % (Auto) 84.1 H (45-73) % Lymph % (Auto) 8.8 L (20-40) % Jennings % (Auto) 6.4 (2-11) % Eos % (Auto) 0.1 (0-4) % Baso % (Auto) 0.2 (0-2) % Lymph # (Auto) 0.9 L (1.2-4.9) X10*3/uL Jennings # (Auto) 0.6 (0.1-1.2) X10*3/uL Eos # (Auto) 0.0 (0.0-0.4) X10*3/uL Baso # (Auto) 0.0 (0.0-0.2) X10*3/uL Abs Immat Gran (auto) 0.04 H (0.00-0.03) X10*3/uL Absolute Neuts (auto) 8.3 (2.0-8.3) x10*3/uL Absolute Nucleated RBC 0.000 (0.0-0.012) X10*3/uL Nucleated RBC % (auto) 0.0 (0.0-0.2) /100WBC Sodium 136 (135-145) mmol/L Potassium 4.8 (3.3-5.1) mmol/L Chloride 102 (96-108) mmol/L Carbon Dioxide 24 (22-29) mmol/L Anion Gap 15 (12-20) BUN 14 (9-16) mg/dL Creatinine 0.97 (0.5-1.4) mg/dL Estim Creat Clear Calc 71.8 Estimated GFR 58 Random Glucose 115 (60-115) mg/dL Lactic Acid 1.3 (0.5-2.0) mmol/L Calcium 9.4 (8.4-10.2) mg/dL Magnesium 2.0 (1.6-2.6) mg/dL Total Bilirubin 1.3 H (0.0-1.0) mg/dL Direct Bilirubin 0.3 (0.0-0.5) mg/dL AST 74 H (5-31) U/L ALT 91 H (0-31) U/L Alkaline Phosphatase 73 (39-117) U/L Troponin I High Sens < 2.7 (<3.5-17.0) ng/L Total Protein 7.5 (6.5-8.0) g/dL Albumin 4.2 (3.5-5.0) g/dL Amylase 129 H (28-100) U/L Lipase 126 H (8-78) U/L Independent Interpretation I performed an independent interpretation of an: EKG, Plain X-Ray and CT Scan Radiology Impression Discussion of test interpretation with radiology: I have reviewed the radiologist's reading. Independent Historian Clinical information obtained from an independent historian. History obtained from or confirmed by: Spouse ( at bedside) External Record Review External record reviewed: Inpatient record, Office record and Outpatient record Chronic Conditions Patient?s care impacted by: Other (Opiate use disorder on buprenorphine friend, bariatric surgery 2002) Medications Administered Discontinued Medications Generic Name Dose Route Start Last Admin Trade Name Freq PRN Reason Stop Dose Admin Diatrizoate Meglum/Diatrizoate Sod 30 ml 09/19/24 17:57 09/19/24 17:57 Diatrizoate Meglumine, Sodium 30 Ml Solution PO 09/19/24 17:58 30 ml ONCE ONE Administration Hydromorphone HCl 1 mg 09/19/24 13:32 09/19/24 13:45 Hydromorphone Hcl 1 Mg/Ml Syringe IVPUSH 09/19/24 13:33 1 mg ONCE ONE Administration Protocol Hydromorphone HCl 2 mg 09/19/24 14:03 09/19/24 14:11 Hydromorphone Hcl 2 Mg/Ml Vial IVPUSH 09/19/24 14:04 2 mg ONCE ONE Administration Protocol Hydromorphone HCl 2 mg 09/19/24 16:34 09/19/24 16:40 Hydromorphone Hcl 2 Mg/Ml Vial IVPUSH 09/19/24 16:35 2 mg ONCE ONE Administration Protocol Hydromorphone HCl 2 mg 09/19/24 19:41 09/19/24 19:50 Hydromorphone Hcl 2 Mg/Ml Vial IVPUSH 09/19/24 19:42 2 mg ONCE ONE Administration Protocol Hydromorphone HCl 2 mg 09/19/24 21:53 09/19/24 22:02 Hydromorphone Hcl 2 Mg/Ml Vial IVPUSH 09/19/24 21:54 2 mg ONCE ONE Administration Protocol Lactated Ringer's 1,000 mls @ 999 mls/hr 09/19/24 13:32 09/19/24 14:32 Lr IV 09/19/24 14:32 Infused .Q1H1M ONE Infusion Famotidine 20 mg/ Sodium 52 mls @ 200 mls/hr 09/19/24 14:15 09/19/24 15:01 Chloride IV 09/19/24 14:30 Infused ONCE ONE Infusion Lactated Ringer's 500 mls @ 500 mls/hr 09/19/24 17:26 09/19/24 19:20 Lr IV 09/19/24 18:25 Infused .Q1H STA Infusion Sodium Chloride 1,000 mls @ 999 mls/hr 09/19/24 20:00 09/19/24 21:27 Ns IV 09/19/24 21:00 Infused .Q1H1M SARA Infusion Piperacillin Sod/Tazobactam 50 mls @ 100 mls/hr 09/19/24 19:58 09/19/24 20:54 Sod 3.375 gm/ Sodium Chloride IV 09/19/24 20:27 Infused ONCE ONE Infusion Sodium Chloride 1,000 mls @ 999 mls/hr 09/19/24 22:00 09/19/24 22:01 Ns IV 09/19/24 23:00 999 mls/hr .Q1H1M SARA Administration Acetaminophen 1,000 mg in 100 mls @ 400 mls/hr 09/19/24 21:53 09/19/24 22:18 Ofirmev IV 09/19/24 22:07 Infused ONCE ONE Infusion Metronidazole 500 mg in 100 mls @ 100 mls/hr 09/19/24 22:41 09/19/24 23:06 Flagyl IV 09/19/24 23:40 100 mls/hr ONCE ONE Administration Ondansetron HCl 4 mg 09/19/24 13:51 09/19/24 13:55 Ondansetron Hcl 4 Mg/2 Ml Vial IVPUSH 09/19/24 13:52 4 mg ONCE ONE Administration Critical Care Time Critical Care Time Critical Care Time: Yes Total Critical Care Time: 120 Attestation: Complicated patient be presenting with upper abdominal pain, she was found to have perforated viscus likely due to ulceration of her anastomosis and perforation. She required numerous IV analgesia, antibiotics as she developed sepsis and multiple specialists consultations and discussions with numerous outside facilities regarding transfer. Patient ultimately accepted to [facility] and brought straight to the OR upon arrival. Discharge Plan Discharge Clinical Impression: Perforated abdominal viscus, Sepsis Patient Disposition: er [facility] Transfer Details: [facility] Prescriptions: No Action oxycodone 5 mg tablet 5 mg PO BID PRN (Reason: pain) Qty: 8 0RF Rx Instructions: Partial Fill upon patient request. omeprazole 40 mg capsule,delayed release(DR/EC) 40 mg PO DAILY Qty: 90 0RF venlafaxine 150 mg capsule,extended release 24hr 150 mg PO DAILY venlafaxine 37.5 mg capsule,extended release 24hr 37.5 mg PO DAILY venlafaxine 75 mg capsule,extended release 24hr 75 mg PO DAILY omeprazole 20 mg capsule,delayed release(DR/EC) 20 mg PO BID lisinopril 10 mg tablet 10 mg PO DAILY albuterol sulfate [Ventolin HFA] 90 mcg/actuation HFA aerosol inhaler 1 inh inhalation QID PRN (Reason: shortness of breath or wheezing) Qty: 8.5 1RF gabapentin 300 mg capsule PO prednisone 10 mg tablet 10 mg PO DAILY Qty: 28 0RF Rx Instructions: 6 pills by mouth day 1, 6 pills by mouth day 2, 5 pills by mouth day 3, 4 pills by mouth day 4, 3 pills by mouth day 5, 2 pills by mouth day 6, 1 pill by mouth day 7 and 1 pill by mouth day 8. Print Language: Jamaican
--- NOTE | 2024-09-19 13:10 | ECG_ITS ---
Test Reason : ABD PAIN Blood Pressure : */* mmHG Vent. Rate : 93 BPM Atrial Rate : 93 BPM P-R Int : 166 ms QRS Dur : 80 ms QT Int : 360 ms P-R-T Axes : 33 -14 29 degrees QTcB Int : 447 ms Poor data quality Normal sinus rhythm Cannot rule out Anterior infarct , age undetermined Abnormal ECG When compared with ECG of 26-May-2018 07:47, No significant changes seen Referred By: Mc Perea Electronically Signed By: CARMINE HACKETT MD
[2024-09-19] MEDS: HYDROmorphone HCl 1 MG/ML SYRINGE IVPUSH (13:45)
[2024-09-19] MEDS: Lactated Ringers 1,000 ML 999 ML IV (13:45)
[2024-09-19 13:51] LABS: MANUAL DIFF FLAG NO
[2024-09-19 13:52] LABS: Basophils Percent Auto 0.2 % (0-2); Eosinophils Percent Auto 0.1 % (0-4); Hematocrit 40.4 % (37.0-47.0); Hemoglobin 14.1 g/dl (12.0-16.0); Imm Gran Abs Auto 0.04 X10*3/uL (0.00-0.03); Imm Gran Pct Auto 0.4 % (0.0-0.4); Lymphocytes Absolute Auto 0.9 X10*3/uL (1.2-4.9); Lymphocytes Percent Auto 8.8 % (20-40); Mean Corpuscular HGB Conc 34.9 g/dl (31.0-35.0); Mean Corpuscular Hemoglobin 31.3 pg (27.0-33.0); Mean Corpuscular Volume 89.8 fL (80.0-98.0); Monocytes Absolute Auto 0.6 X10*3/uL (0.1-1.2); Monocytes Percent Auto 6.4 % (2-11); Neutrophils Absolute Auto 8.3 x10*3/uL (2.0-8.3); Neutrophils Percent Auto 84.1 % (45-73); Platelet Count 328 X10*3/uL (160-400); Red Cell Distribution Width 13.1 % (11.0-16.0); White Blood Count 9.9 X10*3/uL (4.8-10.8)
--- OUTSIDE RECORDS SUMMARY | 2024-09-19 13:53 | XMS_ITS ---
Author Organization [facility] [address] Address [address] [place] [address] Care Team Providers Care [employer] Name Role Phone [facility] Adult P rimary Care Provider Unavailable DESTINEE BARCLAY [phone] Encounters Encounter Location Date Provider Diagnosis [facility] [address] [place] [id number] 05/28/2024 DESTINEE BARCLAY Plan Of Treatment No Information Progress Notes * Brittany IRENEOB:[birth year] (64 yo F)Acc No.[id number]:05/28/2024 Patient:?Yessica IRENE Provider:HILLARY BARCLAY :1960???Age:64 Y???Sex:Female D ate:05/28/2024 Address:[address] [place], [place] [address] [facility] Pcp:[facility] Subjective: * Chief Complaints: * ??? * Medical History:? Objective: * Vitals:? Assessment: Plan: * Treatment: * Images: Billing Information: * Visit Code:? * Procedure Codes:? * Electronic signature of DEXTER BARCLAY PA-C, [id number] on 09/19/2024 at 01:53 PM EDT Sign off status: Pending * Provider:HILLARY BARCLAY Date:? Generated for Kelli shah/Carito/eTransmitting on:?09/19/2024 01:53 PM EDT
[2024-09-19] MEDS: ondansetron HCL 4 MG/2 ML VIAL IVPUSH (13:55)
[2024-09-19] MEDS: HYDROmorphone HCl 2 MG/ML VIAL IVPUSH ×4 (14:11→22:02)
[2024-09-19 14:21] LABS: Alanine Aminotransferase 91 U/L (0-31); Albumin Level 4.2 g/dL (3.5-5.0); Alkaline Phosphatase 73 U/L (39-117); Amylase 129 U/L (28-100); Anion Gap 15 (12-20); Aspartate Amino Transferase 74 U/L (5-31); Bilirubin Total 1.3 mg/dL (0.0-1.0); Blood Urea Nitrogen 14 mg/dL (9-16); Calcium 9.4 mg/dL (8.4-10.2); Carbon Dioxide 24 mmol/L (22-29); Chloride 102 mmol/L (96-108); Creatinine Clr Calc Pharmacy 71.8; Estimated Glomerular Filt Rate 58; Glucose Random 115 mg/dL (60-115); Lipase 126 U/L (8-78); Potassium 4.8 mmol/L (3.3-5.1); Sodium 136 mmol/L (135-145); Total Protein 7.5 g/dL (6.5-8.0); Troponin-I High Sensitivity < 2.7 ng/L (<3.5-17.0)
[2024-09-19] MEDS: Famotidine/PF 20 MG in 0.9 % Sodium Chloride 50 ML 200 MG IV (14:34)
[2024-09-19] MEDS: Lactated Ringers 500 ML IV (17:55)
[2024-09-19] MEDS: Diatrizoate Meglumine, Sodium 30 ML SOLUTION PO (17:57)
[2024-09-19 18:44] LABS: Bilirubin Direct 0.3 mg/dL (0.0-0.5)
--- NOTE | 2024-09-19 19:55 | PC.NURSE ---
Provider made aware of patients temperature and pulse. Plan for abx, blood cultures and lactic acid.
[2024-09-19] MEDS: Piperacillin Sodium/Tazobactam 3.375 GM in 0.9 % Sodium Chloride 50 ML IV (20:24)
[2024-09-19] MEDS: 0.9 % Sodium Chloride 1,000 ML 999 ML IV ×2 (20:24→22:01)
--- NOTE | 2024-09-19 20:24 | PC.NURSE ---
Difficulty obtaining 2nd set of blood cultures at this time. Zosyn initiated at this time.
--- NOTE | 2024-09-19 20:34 | PC.NURSE ---
Per Regulo Jalloh, okay to draw blood cultures from patients foot. Pt denies hx of diabetes, 2nd set obtained from dorsal aspect of right foot.
[2024-09-19 20:42] LABS: Lactic Acid 1.3 mmol/L (0.5-2.0)
[2024-09-19] MEDS: Acetaminophen 1,000 MG/100 ML PIGGYBACK 400 MG IV (22:01)
[2024-09-19] MEDS: metroNIDAZOLE/NS 500 MG/100 ML PIGGYBACK 100 MG IV (23:06)
--- NOTE | 2024-09-19 23:18 | PC.NURSE ---
Addendum entered by Leda Hood 09/19/24 23:19: Attempted to call report to PACU at [facility]. Original Note: Attempted to call report to PACU at this time. no answer. Will attempt again prior to transport.
--- NOTE | 2024-09-19 23:20 | PC.NURSE ---
[facility] transfer line notified of [facility]'s estimated ETA of 30 minutes.
[2024-09-19] MEDS: Lactated Ringers 1,000 ML 150 ML IVCONT (23:52)
[2024-09-20] VITALS: BP 141/83; PULSE 97; RESP 20; O2SAT 94
[2024-09-20] MEDS: HYDROmorphone HCl 2 MG/ML VIAL IVPUSH (00:01)
[2024-09-20 00:03] VITALS: BP 139/88; PULSE 94; RESP 20; TEMP 37.2; O2SAT 93
--- NOTE | 2024-09-20 00:03 | PC.NURSE ---
Report to [facility] for continued care.
[2024-09-20 00:05] VITALS: BP 139/88; PULSE 94; RESP 20; TEMP 37.2; O2SAT 93
--- NOTE | 2024-09-20 00:12 | PC.NURSE ---
Addendum entered by Leda Hood 09/20/24 00:37: Approximately 50 ml of LR given out of bag infusing* Original Note: Pt out of department via ambulance to [facility] with LR infusing. Approximately 50 ml of LR given out of mag infusing.
--- NOTE | 2024-09-20 00:23 | PC.NURSE ---
Report to ED RN at [facility]
== END 2024-09-20 00:28 | disposition short-term general hospital (02) ==
PROVIDERS: Physician Assistant; Emergency Provider Emergency Medicine; PCP Internal Medicine
DX: K63.1 Perforation of intestine (nontraumatic) (principal); A41.9 Sepsis, unspecified organism; R00.0 Tachycardia, unspecified; Z98.84 Bariatric surgery status; I10 Essential (primary) hypertension; Z90.49 Acquired absence of other specified parts of digestive tract; Z79.899 Other long term (current) drug therapy
CPT/HCPCS: 36415; 71046; 74150; 80053; 82150; 82248; 83605; 83690; 83735; 84484; 85025; 87040; 93005; 96361; 96365; 96367; 96375; 96376; 99285; J0131; J1171; J1308; J1836; J2405; J2543; J7120

== ENCOUNTER → 2024-09-19 13:10 | Outpatient (BNV) | payer OTHER, SELFPAY | PROVIDERS: Emergency Provider Emergency Medicine; PCP Internal Medicine; Visit Provider Internal Medicine Cardiovascular Disease | DX: R94.31 Abnormal electrocardiogram [ECG] [EKG] (principal); R10.9 Unspecified abdominal pain | CPT/HCPCS: 93010 ==

== ENCOUNTER → 2024-09-19 13:11 | Outpatient (BNV) | payer OTHER, SELFPAY | PROVIDERS: Emergency Provider Emergency Medicine; PCP Internal Medicine; Visit Provider Radiology Diagnostic Radiology | DX: K52.9 Noninfective gastroenteritis and colitis, unspecified (principal); R18.8 Other ascites; K66.8 Other specified disorders of peritoneum; R10.13 Epigastric pain | CPT/HCPCS: 71046; 74150 ==

== ENCOUNTER 2024-10-01 17:01 | Inpatient (IN) | payer OTHER, SELFPAY ==
[2024-10-01] VITALS (11 sets, daily range): BP systolic 103–142; BP diastolic 50–92; PULSE 71–107; RESP 12–19; TEMP 36.7–38.7; O2SAT 93–97; BMI 41.4
--- NOTE | ~2024-10-01 | CT_ITS ---
CLINICAL HISTORY: duodenal ulcer perf with abscess CT abdomen and pelvis with contrast Comparison: CT of the abdomen from 09/19/2024 Findings: Mild bibasilar atelectasis and scarring of the imaged lung bases. Gas and fluid as can be seen with reported abscess of the anterior margin of the imaged duodenum measures 2.8 x 3.1 cm (image 19 of series 3); phlegmonous change with gas also considered. Mild small bowel dilatation measures 3 cm in the left upper quadrant concerning for recurrent obstruction versus ileus. Contrast refluxes into appendix include obscure small appendicolith with the appendix measuring at the upper limits of normal without definite findings of acute appendicitis at this time (image 347 of series 4). Free intraperitoneal persists or is recurrent. Differential considerations include postprocedural gas or persistent free intraperitoneal air, including anterior margin of the liver (imaged 11 of series 3). Mild CBD dilatation can be seen post cholecystectomy. Liver appears unchanged. Mild/borderline splenomegaly. Bilateral adrenal hyperplasia. Moderate volume loss of the pancreas nonspecific. No hydronephrosis. No new or worsening lymphadenopathy in the imaged abdomen. Periaortic lymph nodes may be reactive. The uterus is anteverted. No adnexal soft tissue mass by CT. 2.2 cm fluid right side of the pelvis is likely associated with right adnexa such as follicle. Adjacent fat and calcification may reflect small dermoid measuring 1.8 cm (image 66 of series 3). Portions of the pelvis are obscured including from contrast in the urinary bladder and severe metal artifacts from bilateral hip arthroplasty. Additional free fluid in the abdomen pelvis is mild and nonspecific. Vacuum disc phenomenon includes majority of the imaged spine. Mild vertebral height losses appear old/chronic including L2. Grade 1 anterolisthesis of the L4-L5. Facet arthropathy is multifocal. Moderate spinal stenosis of the lumbar spine by CT with relative sparing at L1-L2. IMPRESSION: 1. Gas and fluid as can be seen with reported abscess of the anterior margin of the imaged duodenum measures 2.8 x 3.1 cm. Small foci of intraperitoneal air persists or is recurrent in the upper abdomen. Please consider attention on follow-up to ensure resolution. 2. Free fluid persists in the abdomen pelvis and can be seen with pancreatitis, duodenitis, previously noted rupture, and postprocedural fluid. 3. Mild small bowel dilatation including at anastomosis in the left hemiabdomen may be due to recurrent small-bowel obstruction or sentinel loop ileus. 4. Fluid and right adnexal region likely associated with the right ovary. Consider additional evaluation with nonemergent ultrasound given adjacent mixed density with likely dermoid of the right ovary. This document has been electronically signed by: Bryn Ponce MD on 10/01/2024 20:40:53
--- NOTE | 2024-10-01 17:06 | ED.GENADULT ---
HPI - General Adult General Chief complaint: Fever Stated complaint: fever/abscess on intestine/recent surgery Time Seen by Provider: 10/01/24 17:14 Source: patient, RN notes reviewed and old records reviewed Mode of arrival: ambulatory Limitations: no limitations History of Present Illness ED Provider: Yeimi HPI narrative: 64-year-old female presents for evaluation of a fever. Patient was actually seen by myself 12 days ago on 09/19/2024. 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 She was operated on and treated at the outside facility for 1 week. The patient has had fevers for the last [address] scan today showed a 5 cm duodenal abscess. I received a phone call from Krunal grimm bariatric PA who tells me that the patient will be admitted to the bariatric service but he wanted the patient to have repeat labs, CT scan with IV and oral contrast prior to readmission. The patient should be NPO after midnight The patient states that she feels unwell, febrile but denies any pain whatsoever. Related Data Home Medications ?Medication ?Instructions ?Recorded ?Confirmed gabapentin 300 mg capsule mg PO 01/09/22 11/08/22 lisinopril 10 mg tablet 10 mg PO DAILY 07/25/22 11/08/22 omeprazole 20 mg capsule,delayed 20 mg PO BID 07/25/22 11/08/22 release venlafaxine 150 mg 150 mg PO DAILY 07/25/22 11/08/22 capsule,extended release 24 hr venlafaxine 37.5 mg 37.5 mg PO DAILY 07/25/22 11/08/22 capsule,extended release 24 hr venlafaxine 75 mg capsule,extended 75 mg PO DAILY 07/25/22 11/08/22 release 24 hr Previous Rx's ?Medication ?Instructions ?Recorded albuterol sulfate 90 mcg/actuation 1 inh inhalation QID PRN shortness 11/07/22 aerosol inhaler (Ventolin HFA) of breath or wheezing #8.5 grams prednisone 10 mg tablet 10 mg PO DAILY #28 tabs 11/19/22 omeprazole 40 mg capsule,delayed 40 mg PO DAILY #90 caps 09/19/24 release oxycodone 5 mg tablet 5 mg PO BID PRN pain #8 tabs 09/19/24 Allergies Allergy/AdvReac Type Severity Reaction Status Date / Time muscle relaxers AdvReac Mild panic Uncoded 10/01/24 17:09 Review of Systems Constitutional: Constitutional: Reports body ache(s), Reports chills, Reports fever(s) and Reports malaise Eyes: Eyes: Denies blurry vision ENT: Denies dizziness and Denies dry mouth Cardiovascular: Cardiovascular: Denies chest pain and Denies dyspnea on exertion Respiratory: Respiratory: Denies cough and Denies dyspnea on exertion Gastrointestinal: Gastrointestinal: Denies abdominal pain, Denies nausea and Denies vomiting Musculoskeletal: Musculoskeletal: Denies back pain Integumentary/Breasts: Skin/Breast: Denies rash Neurologic: Denies dizziness PMFSH Social History Social History Unable to assess alcohol history related to: Unknown Alcohol intake: never Patient Tobacco Use Status: Never used Tobacco Smoked in Last 30 Days: No Use of substances other than those prescribed or required for medical reasons: Unknown Advance Directives: No Advance Directives Information Provided: No Do you have a plan to hurt others: No Plan Patient : No Physical Exam ED Vital Signs: Vital Signs - 24 hr 10/01/24 17:04 10/01/24 18:04 10/01/24 18:19 Temperature 101.7 F H 98.3 F Pulse Rate 107 H 86 83 Respiratory Rate 16 18 14 Blood Pressure 142/80 H 118/58 L 103/50 L Pulse Oximetry 97 93 94 Oxygen Delivery Method Room Air Room Air Room Air 10/01/24 18:19 10/01/24 18:31 10/01/24 18:49 Temperature 98.1 F Pulse Rate 84 82 80 Respiratory Rate 19 18 17 Blood Pressure 103/50 L 103/50 L 105/59 L Pulse Oximetry 94 96 96 Oxygen Delivery Method Room Air Room Air Room Air 10/01/24 19:59 Temperature 99.1 F Pulse Rate 103 H Respiratory Rate 19 Blood Pressure 134/92 H Pulse Oximetry 97 Oxygen Delivery Method Room Air BMI result Body Mass Index 41.4 Const General: comfortable, no acute distress, alert and awake Nutritional Appearance: well nourished Orientation/consciousness: patient oriented x3 HENMT Head: Yes normocephalic and Yes atraumatic Eyes Eyelids: Yes eyelids normal Conjunctivae: conjunctivae normal Sclerae: sclerae normal Corneas: corneas normal Pupils: Equal, round and reactive pupils present EOM: EOMs intact bilaterally Neck Neck: Yes full ROM Resp Effort & Inspection: normal respiratory effort, able to speak in complete sentences and not labored Cardio Rate: regular rate Rhythm: regular rhythm GI Other: Surgical incisions appear to be healing well. There is some ecchymosis around the surgical wounds but no erythema, no drainage. Abdomen is grossly nontender to palpation. No abdominal distention. Inspection: No distended Palpation (GI): Soft to palpation, not firm, nontender, no guarding and not rigid Skin General skin exam: elasticity normal Neuro General: patient oriented x3 Cranial nerves: Yes Equal, round and reactive pupils present and Yes Bilaterally intact EOM present Cognition (Neuro): normal cognition Extrem Other: Moving all extremities well without any obvious deformities Course Course Course Narrative: This is an RME: Additional HPI, ROS, PE not included below will be deferred to primary provider. RME assessment and note performed by: Ning Mccauley PA-C This [id number] who presents to the ER with complaints of fevers for the last 4 days. She was told by the provider at the previous hospital she was at to ?burn off the fever? - did however take Tylenol this morning and had excessive sweats. She denies any current pain. No abdominal pain. No nausea. +diarrhea. Patient had very complicated surgery, was transferred to [facility] in [place], [place]. Patient febrile and tachycardic. Plan: Pt to be brought back [facility]. Reevaluation(s) Reevaluation #1: A sepsis alert was called as the patient has a fever of 101.7, is tachycardic in his a known intra-abdominal abscess from recent duodenal ulcer perforation. I ordered vancomycin, Zosyn. She will receive IV fluids normal saline 2 L as a bolus. She does not meet criteria for severe sepsis, but we are basic IV fluids off of ideal body weight which will be 52 kg and she will receive above 30 cc/kilogram. Her lactate is pending, but she is not hypotensive. Sepsis focused exam was performed. Time: 17:52 Medications Administered Discontinued Medications Generic Name Dose Route Start Last Admin Trade Name Freq PRN Reason Stop Dose Admin Diatrizoate Meglum/Diatrizoate Sod 30 ml 10/01/24 19:54 10/01/24 19:54 Diatrizoate Meglumine, Sodium 30 Ml Solution PO 10/01/24 19:55 30 ml ONCE ONE Administration Sodium Chloride 1,000 mls @ 999 mls/hr 10/01/24 17:45 10/01/24 18:02 Ns IVCONT 10/01/24 19:45 999 mls/hr .Q1H1M SARA Administration Vancomycin HCl 2,000 mg in 500 mls @ 250 mls/hr 10/01/24 17:39 10/01/24 18:34 Vancomycin/Ns IV 10/01/24 19:38 250 mls/hr ONCE ONE Administration Piperacillin Sod/Tazobactam 100 mls @ 200 mls/hr 10/01/24 17:39 10/01/24 18:40 Sod 4.5 gm/ Sodium Chloride IV 10/01/24 18:08 Infused ONCE ONE Infusion Acetaminophen 1,000 mg in 100 mls @ 400 mls/hr 10/01/24 17:48 10/01/24 18:17 Ofirmev IV 10/01/24 18:02 Infused ONCE ONE Infusion Iohexol 100 ml 10/01/24 19:53 10/01/24 19:54 Iohexol 350 Mg/Ml 100 Ml Infus..Btl IV 10/01/24 19:54 85 ml ONCE ONE Administration Ondansetron HCl 4 mg 10/01/24 18:26 10/01/24 18:34 Ondansetron Hcl 4 Mg/2 Ml Vial IVPUSH 10/01/24 18:27 4 mg ONCE ONE Administration Medical Decision Making Medical Decision Making MDM Narrative: 64-year-old female presents for evaluation of a fever. She has an outpatient CT scan that shows a known 5 cm do while no abscess. Plan to follow instructions of the bariatric team, repeat imaging. She will be given IV antibiotics and IV fluids. Krunal grimm also requested D5 LR at at least 150 cc/hour which will be administered after the IV fluid bolus. Differential Diagnosis Differential Diagnoses: The differential diagnosis associated with the presentation includes Sepsis Intra-abdominal abscess Duodenal abscess Bowel perforation Admission/Observation Consideration of admission/observation: Escalation of care including admission/observation considered Consult Healthcare Provider Management of the patient was discussed with: Food Service Attendant Krunal QUINTEROS Lab Data 10/01/24 17:54 10/01/24 17:54 Labs: Lab Results 10/01/24 10/01/24 Range/Units 17:54 20:33 WBC 19.3 H (4.8-10.8) X10*3/uL RBC 3.07 L D (4.20-5.50) X10*6/uL Hgb 9.7 L D (12.0-16.0) g/dl Hct 27.6 L D (37.0-47.0) % MCV 89.9 (80.0-98.0) fL MCH 31.6 (27.0-33.0) pg MCHC 35.1 H (31.0-35.0) g/dl RDW 13.4 (11.0-16.0) % Plt Count 483 H D (160-400) X10*3/uL MPV 9.8 (9.4-12.3) fL Immature Gran % (Auto) 1.7 H (0.0-0.4) % Neut % (Auto) 86.2 H (45-73) % Lymph % (Auto) 5.7 L (20-40) % [place] % (Auto) 5.5 (2-11) % Eos % (Auto) 0.7 (0-4) % Baso % (Auto) 0.2 (0-2) % Lymph # (Auto) 1.1 L (1.2-4.9) X10*3/uL [place] # (Auto) 1.1 (0.1-1.2) X10*3/uL Eos # (Auto) 0.1 (0.0-0.4) X10*3/uL Baso # (Auto) 0.0 (0.0-0.2) X10*3/uL Abs Immat Gran (auto) 0.33 H (0.00-0.03) X10*3/uL Absolute Neuts (auto) 16.6 H (2.0-8.3) x10*3/uL Absolute Nucleated RBC 0.000 (0.0-0.012) X10*3/uL Nucleated RBC % (auto) 0.0 (0.0-0.2) /100WBC Sodium 134 L (135-145) mmol/L Potassium 3.5 D (3.3-5.1) mmol/L Chloride 100 (96-108) mmol/L Carbon Dioxide 26 (22-29) mmol/L Anion Gap 12 (12-20) BUN 6 L (9-16) mg/dL Creatinine 0.83 (0.5-1.4) mg/dL Estim Creat Clear Calc 81.9 Estimated GFR > 60 Random Glucose 104 (60-115) mg/dL Lactic Acid 0.9 (0.5-2.0) mmol/L Calcium 8.3 L D (8.4-10.2) mg/dL Magnesium 1.8 (1.6-2.6) mg/dL Total Bilirubin 0.5 (0.0-1.0) mg/dL AST 69 H (5-31) U/L ALT 40 H (0-31) U/L Alkaline Phosphatase 137 H (39-117) U/L Total Protein 6.8 (6.5-8.0) g/dL Albumin 3.4 L (3.5-5.0) g/dL Lipase 13 (8-78) U/L Urine Color Yellow Urine Appearance Clear Urine pH 7.5 (5.0-9.0) Ur Specific [place] >= 1.030 H (1.005-1.025) Urine Protein Negative (Neg-Trace) mg/dL Urine Glucose (UA) Negative (Negative) mg/dL Urine Ketones Negative (Negative) mg/dL Urine Blood Negative (Negative) Urine Nitrite Negative (Negative) Ur Leukocyte Esterase Negative (Negative) Discharge Plan Discharge Clinical Impression: Abscess of duodenum Patient Disposition: Admitted As Inpatient Print Language: Nepalese
--- NOTE | 2024-10-01 17:44 | PC.NURSE ---
RN attempt to obtain IV access and labs. unable. ALDAIR ferrari aware, another nurse to try.
[2024-10-01 18:00] LABS: MANUAL DIFF FLAG NO
[2024-10-01] MEDS: Acetaminophen 1,000 MG/100 ML PIGGYBACK 400 MG IV (18:01)
[2024-10-01] MEDS: 0.9 % Sodium Chloride 1,000 ML 999 ML IVCONT ×2 (18:02→20:32)
[2024-10-01] MEDS: Piperacillin Sodium/Tazobactam 4.5 GM in 0.9 % Sodium Chloride 100 ML IV ×2 (18:08→23:01)
[2024-10-01 18:16] LABS: Alanine Aminotransferase 40 U/L (0-31); Albumin Level 3.4 g/dL (3.5-5.0); Alkaline Phosphatase 137 U/L (39-117); Anion Gap 12 (12-20); Aspartate Amino Transferase 69 U/L (5-31); Bilirubin Total 0.5 mg/dL (0.0-1.0); Blood Urea Nitrogen 6 mg/dL (9-16); Calcium 8.3 mg/dL (8.4-10.2); Carbon Dioxide 26 mmol/L (22-29); Chloride 100 mmol/L (96-108); Creatinine Clr Calc Pharmacy 81.9; Estimated Glomerular Filt Rate > 60; Glucose Random 104 mg/dL (60-115); Lactic Acid 0.9 mmol/L (0.5-2.0); Lipase 13 U/L (8-78); Magnesium 1.8 mg/dL (1.6-2.6); Potassium 3.5 mmol/L (3.3-5.1); Sodium 134 mmol/L (135-145); Total Protein 6.8 g/dL (6.5-8.0)
[2024-10-01 18:30] LABS: Basophils Percent Auto 0.2 % (0-2); Eosinophils Absolute Auto 0.1 X10*3/uL (0.0-0.4); Eosinophils Percent Auto 0.7 % (0-4); Hematocrit 27.6 % (37.0-47.0); Hemoglobin 9.7 g/dl (12.0-16.0); Imm Gran Abs Auto 0.33 X10*3/uL (0.00-0.03); Imm Gran Pct Auto 1.7 % (0.0-0.4); Lymphocytes Absolute Auto 1.1 X10*3/uL (1.2-4.9); Lymphocytes Percent Auto 5.7 % (20-40); Mean Corpuscular HGB Conc 35.1 g/dl (31.0-35.0); Mean Corpuscular Hemoglobin 31.6 pg (27.0-33.0); Mean Corpuscular Volume 89.9 fL (80.0-98.0); Mean Platelet Volume 9.8 fL (9.4-12.3); Monocytes Absolute Auto 1.1 X10*3/uL (0.1-1.2); Monocytes Percent Auto 5.5 % (2-11); Neutrophils Absolute Auto 16.6 x10*3/uL (2.0-8.3); Neutrophils Percent Auto 86.2 % (45-73); Platelet Count 483 X10*3/uL (160-400); Red Blood Count 3.07 X10*6/uL (4.20-5.50); Red Cell Distribution Width 13.4 % (11.0-16.0); White Blood Count 19.3 X10*3/uL (4.8-10.8)
[2024-10-01] MEDS: ondansetron HCL 4 MG/2 ML VIAL IVPUSH (18:34)
[2024-10-01] MEDS: vancomycin/NS 2,000 MG/500 ML PLAST..BAG 250 MG IV (18:34)
[2024-10-01] MEDS: Diatrizoate Meglumine, Sodium 30 ML SOLUTION PO (19:54)
[2024-10-01] MEDS: iohexoL 350 MG/ML 100 ML INFUS..BTL IV (19:54)
--- OUTSIDE RECORDS SUMMARY | 2024-10-01 19:58 | XMS_ITS | Clinical Summary ---
Author Organization [facility] Address [address] [place] [address] Care Team Providers Care Refractory Mixer Name Role Phone Eleazar To MD Primary Care Provider [phone] Allergies No known active allergies Medications buprenorphine (BUPRENEX) [address] 1 tablet (8 mg total) under the tongue daily. Max Daily Amount: 8 mg Active cyanocobalamin (VITAMIN B-12) 1000 MCG/ML injection Inject 1 mL (1,000 mcg total) under the skin every 30 days (once a month). Active estrogens, conjugated,-met hylTESTOSTERone (ESTRATEST) 1.25-2.5 MG per tablet Take 1 tablet by mouth daily. Active gabapentin (NEURONTIN) 300 MG capsule Take 2 capsules (600 mg total) by mouth 3 (three) times a day. Active lisinopril (PRINIVIL,ZeSTR IL) 10 MG tablet Take 1 tablet (10 mg total) by mouth daily. Active progesterone (PROMETRIUM) 100 MG capsule Take 1 capsule (100 mg total) by mouth daily. Active tirzepatide (ZEPBOUND) 7.5 mg/0.5 mL subcutaneous injection Inject 0.5 mL (7.5 mg total) under the skin every 7 days. SATURDAYS Active venlafaxine (EFFEXOR-XR) 75 MG 24 hr capsule Take 1 capsule (75 mg total) by mouth daily. Active venlafaxine (EFFEXOR-XR) 150 MG 24 hr capsule Take 1 capsule (150 mg total) by mouth daily. Active Cholecalciferol (Vitamin D-3) 125 MCG (5000 UT) Tab Take 1 tablet by mouth daily. Active multivitamin Tab tablet Take 1 tablet by mouth daily. Active ferrous sulfate 324 (65 Fe) MG Tablet Delayed Response Take 1 tablet (324 mg total) by mouth daily. Active Brimonidine Tartrate (Lumify) 0.025 % Solution Apply 1 drop to eye daily. Active simethicone (MYLICON) 80 MG chewable tablet Chew 2 tablets (160 mg total) 4 times daily (every 6 hours) as needed for flatulence or gastrointestinal distress. Active carboxymethylce llulose (REFRESH PLUS) 0.5 % Solution Administer 1 drop to both eyes daily as needed for dry eyes. Active fluticasone (FloNASE) 50 mcg/spray nasal spray 1 spray into each nostril daily. Active magnesium hydroxide (MILK OF MAGNESIA) 400 mg/5 mL suspension Take 30 mL by mouth daily as needed for constipation. Active acetaminophen (TYLENOL) 325 MG tabletIndicatio ns:Duodenal ulcer perforation (HCC) Take 3 tablets (975 mg total) by mouth 4 times daily (every 6 hours) as needed for mild pain. 09/24/19 25 2024 Active albuterol (PROVENTIL HFA; VENTOLIN HFA) 108 (90 Base) MCG/ACT inhalerIndicati ons:Duodenal ulcer perforation (HCC) Inhale 2 puffs 4 times daily (every 6 hours) as needed for wheezing or shortness of breath. 1 each 09/24/19 25 2024 Active polyethylene glycol (miraLAx) 17 g packetIndicatio ns:Duodenal ulcer perforation (HCC) Take 1 packet (17 g total) by mouth daily. 30 packet 09/25/19 25 2024 Active PANTOprazole (PROTONIX) 40 MG EC tabletIndicatio ns:Duodenal ulcer perforation (HCC) Take 1 tablet (40 mg total) by mouth every morning before breakfast. 30 tablet 09/24/19 25 2024 Active oxyCODONE (ROXICODONE) 5 MG immediate release tabletIndicatio ns:Duodenal ulcer perforation (HCC) Take 1 tablet (5 mg total) by mouth every 4 (four) hours as needed for severe pain. Max Daily Amount: 30 mg 12 tablet 09/24/19 Active amoxicillin-cla vulanate (AUGMENTIN) 875-125 MG per tabletIndicatio ns:Duodenal ulcer perforation (HCC) Take 1 tablet by mouth 2 (two) times a day. 4 tablet 09/24/19 25 2024 fluconazole (diFLUcan) 100 MG tabletIndicatio ns:Duodenal ulcer perforation (HCC) Take 4 tablets (400 mg total) by mouth daily. 8 tablet 09/24/19 25 2024 HYDROmorphone (DILAUDID) 2 MG tabletIndicatio ns:Duodenal ulcer perforation (HCC) Take 1 tablet (2 mg total) by mouth every 3 (three) hours as needed for severe pain. 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 Perforated abdominal viscus 09/20/2024 Resolved Problems Problem Noted Date Diagnosed Date Resolved Date Duodenal ulcer perforation 09/20/2024 0 09/23/2024 Encounters Date Type Department Care Team Description 10/01/2024 1:53 PM EDT Hospital Encounter [facility] Radiology [facility] [address] [place] [address] [place] [phone] Bertin Guillory MD Perforated abdominal viscus; History of Rick-en-Y gastric bypass 10/01/2024 Documentation [facility] Bariatric Surgery [place] [address] [place] [phone] Eve England, RN 10/01/2024 Travel 09/30/2024 Telephone [facility] Bariatric Surgery [address] [phone] Eve England, RN 09/29/2024 Telephone [facility]ariatric [facility] [place] [address] [place] [address] Eve England, RN 09/20/2024 2:50 AM EDT Anesthesia Event [facility] [address] [place] [phone] Jerardo Adams MD Mendes, Rodrigo, SADIQ 09/20/2024 2:25 AM EDT - 09/20/2024 4:22 AM EDT Surgery [facility] [address] [place] [address] [place] [phone] Bertin Guillory MD LAPAROSCOPIC PERFORATED DUODENAL ULCER PLICATION 09/20/2024 1:22 AM EDT - 09/23/2024 6:51 PM EDT Hospital Encounter [facility] [address] [place] [phone] Steffi Contreras DO Benbrahim, Aziz, MD Perforated abdominal viscus (Primary Dx); Duodenal ulcer perforation (HCC) Discharge Disposition: Home or Self Care 09/20/2024 Travel 09/19/2024 Hospital Encounter [facility] [address] [place] [phone] Bertin Guillory MD from Last 3 Months Social History Tobacco Use Types Packs/Day Years Used Date Smoking Tobacco: Never Passive Smoke Exposure: Never Smokeless Tobacco: Never Tobacco Cessation:Counseling Given: Not Answered [facility] Utilities Answer Date Recorded In the past 12 months has e [employer], [employer], oil, or water [employer] threatened to shut off services in your home? No 09/20/2024 AUDIT-C Answer Date Recorded Q1: How often do you have a drink containing alcohol? Never 09/20/2024 Q2: How many drinks containi ng alcohol do you have on a typical day when you are drinking? Patient does not drink Q3: How often do you have si x or more drinks on one occasion? Never 09/20/2024 Hunger Vital Sign Answer Date Recorded Within the past 12 months, y ou worried that your food would run out before you got the money to buy more. Never true 09/21/19 25 Within the past 12 months, t he food you bought just didn't last and you didn't have money to get more. Never true 09/20/2024 PRAPARE - Transportation Answer Date Re corded In the past 12 months, has l ack of transportation kept you from medical appointments or from getting medications? No 09/06 In the past 12 months, has l ack of transportation kept you from meetings, work, or from getting things needed for daily living? No 09/20/2024 Housing Stability Vital Sign Answer Maxi e Recorded In the last 12 months, was t here a time when you were not able to pay the mortgage or rent on time? No 09/20/2024 In the past 12 months, how m any times have you moved where you were living? 0 09/20/2024 At any time in the past 12 m [facility], were you homeless or living in a group home (including now)? No 09/20/2024 Comments Unknown Sex and Gender Information Value Date Recorded Sex Assigned at Female 09/20/2024 2:00 AM EDT Legal Sex Female 10:32 PM EDT Gender Identity Female 09/20/2024 2:00 AM EDT Sexual Orientation Heterosexual (straight) 09/20 2:00 AM EDT Last Filed Vital Signs Vital Sign Reading Time Taken Comments Blood Pressure 131/86 09/23/2024 2:15 PM EDT Pulse 85 09/23/2024 2:15 PM EDT Temperature 36.4 C (97.6 F) 09/23/2024 2:15 PM EDT Respiratory Rate 17 09/23/2024 2:15 PM EDT Oxygen Saturation 97% 09/23/2024 2:15 PM EDT Inhaled Oxygen Concentration - - Weight 113 kg (250 lb) 09/20/2024 2:04 AM EDT Height 160 cm (5' 3 ) 09/20/2024 2:04 AM EDT Body Mass Index 44.29 09/20/2024 2:04 AM EDT Plan of Treatment Upcoming Encounters Date Type Department Care Team (Late st Contact Info) Description 10/12/2024 11:45 AM EDT Office Visit [facility] General Surgery [address] [place] [address] Bertin Guillory MD [address] [place] [address] Health Maintenance Due Date Last Done Comments Hepatitis C Virus Screening 1962 HIV Screening 1975 DTaP/Tdap/Td Vaccines (1 - Tdap) 1981 Pap Smear (Ages 21-65) 1983 Mammogram 2002 Colonoscopy 2007 Pneumococcal Vaccines 50+ (1 of 1 - PCV) 2012 Zoster (Shingles) Vaccine (1 of 2) 2012 RSV Vaccine 60 years and older and Patients (1 - Risk 60-74 years 1-dose series) 2022 COVID-19 Vaccine (3 - season) 2023 08/26/2020, 07/27/2020 Influenza Vaccine 11/06/2024 11/25/2021, , 02/10/2018, Additional history exists Hepatitis B Vaccines Aged Out No long er eligible based on patient's age to complete this topic Procedures Procedure Name Priority Date/Time Associated Diagnosis Comments CT ABDOMEN+PELVIS W/CONTRAST BARIATRIC PROTOCOL STAT 10/01/2024 2:24 PM EDT Perforated abdominal viscus History of Rick-en-Y gastric bypass COMPREHENSIVE METABOLIC PANEL Routine 09/23/2024 5:56 AM EDT COMPLETE BLOOD COUNT, WITHOUT DIFFERENTIAL Routine 09/23/2024 5:56 AM EDT XR CHEST 2 VIEWS Routine 09/22/2024 8:55 AM EDT COMPLETE BLOOD COUNT, WITHOUT DIFFERENTIAL Routine 09/22/2024 6:31 AM EDT PHOSPHORUS Routine 09/22/2024 6:31 AM EDT MAGNESIUM Routine 09/22/2024 6:31 AM EDT BASIC METABOLIC PANEL Routine 09/22/2024 6:31 AM EDT PHOSPHORUS Routine 09/21/2024 5:58 AM EDT MAGNESIUM Routine 09/21/2024 5:58 AM EDT LIPASE Routine 09/21/2024 5:58 AM EDT HEPATIC FUNCTION PANEL Routine 5:58 AM EDT BASIC METABOLIC PANEL Routine 09/21/2024 5:58 AM EDT COMPLETE BLOOD COUNT, WITHOUT DIFFERENTIAL Routine 09/21/2024 5:58 AM EDT MAGNESIUM Routine 09/20/2024 5:46 AM EDT PHOSPHORUS Routine 09/20/2024 5:46 AM EDT COMPLETE BLOOD COUNT, WITHOUT DIFFERENTIAL Routine 09/20/2024 5:46 AM EDT BASIC METABOLIC PANEL Routine 09/20/2024 5:46 AM EDT ANES BLOCK - OTHER Routine 09/20/2024 4: 16 AM EDT ANES INTUBATION Routine 09/20/2024 3:56 AM EDT LAPAROSCOPY DIAGNOSTIC/EXPLORATORY 09/20/2024 2:35 AM EDT Perforated abdominal viscus LACTIC ACID, PLASMA STAT 09/20/2024 1 :33 AM EDT HEPATIC FUNCTION PANEL STAT 1:28 AM EDT PHOSPHORUS STAT 09/20/2024 1:28 AM EDT MAGNESIUM STAT 09/20/2024 1:28 AM EDT COMPLETE BLOOD COUNT, WITHOUT DIFFERENTIAL STAT 09/20/2024 1:28 AM EDT BASIC METABOLIC PANEL STAT 09/20/2024 1:28 AM EDT from Last 3 Months Results * CT Abdomen+Pelvis with IV contrast Bariatric Protocol (10/01/2024 2:24 PM EDT) Anatomical Region Laterality Modality Abdomen, Pelvis Computed Tomogra phy 10/01/2024 3:03 PM EDT Impressions 10/01/2024 3:20 PM EDT Prior studies are not available for direct comparison. Approximately 4.9 x 3 cm thick-walled extraluminal fluid collection with internal gas and adjacent inflammatory changes along the anterior aspect of the stomach, best seen on image 23 of series 2. Small amount of pneumoperitoneum. Findings are concerning for abscess/leak. Small amount of free fluid. Additional 2.7 x 1.8 cm fluid pocket with internal gas bubbles along the anterior aspect of the caudate lobe and 5.4 x 1.9 cm fluid collection with faint rim enhancement in the low pelvis, best seen on image 70 of series 2, suspicious for early abscesses. Gastric bypass surgery changes. No bowel obstruction. Mild intrahepatic duct dilatation may be related to cholecystectomy. A Critical finding has been communicated to Radiology Sanding Machine Tender for provider notification via the ManagerComplete [employer] Findings Application on 10/01/2024 3:19 PM, Message ID [id number]. Narrative 10/01/2024 3:20 PM EDT PROCEDURE: CT ABDOMEN+PELVIS W/CONTRAST BARIATRIC PROTOCOL (35014) EXAM DATE: 10/01/2024 1:56 PM CLINICAL HISTORY: s/p lap perforated duodenal ulcer plication on 09/20. Fever and watery diarrhea x2 days- assess for abscess TECHNIQUE: Axial computed tomography images of the abdomen and pelvis with intravenous contrast. This CT exam was performed using one or more of the following dose reduction techniques: automated exposure control, adjustment of the mA and/or kV according to patient size, and/or use of iterative reconstruction technique. CONTRAST: 80 mL of Omnipaque 350 was administered intravenously. COMPARISON: No relevant prior studies available. FINDINGS: Lung bases: Bibasilar atelectasis. ABDOMEN: Liver: Mild intrahepatic duct dilatation. Gallbladder and bile ducts: Cholecystectomy clips with biliary ectasia. Pancreas: Unremarkable. No mass. No ductal dilation. Spleen: Unremarkable. No splenomegaly. Adrenals: Unremarkable. No mass. Kidneys and ureters: Unremarkable. No solid mass. No hydronephrosis. Stomach and bowel: Gastric bypass surgery changes. There is passage of oral contrast into the duodenum and across the more distal small bowel loops into the colon. No abraham obstruction. There is an approximately 4.9 x 3 cm thick-walled extraluminal fluid collection with internal gas and adjacent inflammatory changes along the anterior aspect of the stomach, best seen on image 23 of series 2. There is a 2.7 x 1.8 cm fluid pocket with internal gas bubbles along the anterior aspect of the caudate lobe on image 60 of series 2. 5.4 x 1.9 cm fluid collection with faint rim enhancement in the low pelvis, best seen on image 70 of series 2. PELVIS: Appendix: No findings to suggest acute appendicitis. Bladder: Predominantly obscured by artifact. Reproductive: 2.8 x 3 cm hypodense observation in the right adnexa, best seen on image 70 of series 2. ABDOMEN and PELVIS: Intraperitoneal space: Small amount of free fluid, most prominently in the upper abdomen with associated mesenteric edema and stranding. Trace amount of pneumoperitoneum. Bones/joints: Severe spray artifact from bilateral hip arthroplasties, which appear well situated on the final canoe inspector radiograph. Degenerative changes in the lumbar spine. Soft tissues: Heterotopic ossification in the left lateral buttock region. Vasculature: Unremarkable. Lymph nodes: Borderline prominent retroperitoneal and mesenteric lymph nodes. Procedure Note Maty Harper MD - 10/01/2024 PROCEDURE: CT ABDOMEN+PELVIS W/CONTRAST BARIATRIC PROTOCOL (50209) EXAM DATE: 10/01/2024 1:56 PM CLINICAL HISTORY: s/p lap perforated duodenal ulcer plication on 09/20. Fever and waterydiarrhea x2 days- assess for abscess TECHNIQUE: Axial computed tomography images of the abdomen and pelvis withintravenous contrast. This CT exam was performed using one or more of thefollowing dose reduction techniques: automated exposure control,adjustment of the mA and/or kV according to patient size, and/or use of iterative reconstruction technique. CONTRAST: 80 mL of Omnipaque 350 was administered intravenously. COMPARISON: No relevant prior studies available. FINDINGS: Lung bases: Bibasilar atelectasis. ABDOMEN: Liver: Mild intrahepatic duct dilatation. Gallbladder and bile ducts: Cholecystectomy clips with biliaryectasia. Pancreas: Unremarkable. No mass. No ductal dilation. Spleen: Unremarkable. No splenomegaly. Adrenals: Unremarkable. No mass. Kidneys and ureters: Unremarkable. No solid mass. Nohydronephrosis. Stomach and bowel: Gastric bypass surgery changes. There is passage oforal contrast into the duodenum and across the more distal small bowelloops into the colon. No abraham obstruction. There is an approximately 4.9x 3 cm thick-walled extraluminal fluid collection with internal gas and adjacent inflammatory changes alongthe anterior aspect of the stomach, best seen on image 23 of series 2.There is a 2.7 x 1.8 cm fluid pocket with internal gas bubbles along theanterior aspect of the caudate lobe on image 60 of series 2. 5.4 x 1.9 cm fluid collection with faint rimenhancement in the low pelvis, best seen on image 70 of series 2. PELVIS: Appendix: No findings to suggest acute appendicitis. Bladder: Predominantly obscured by artifact. Reproductive: 2.8 x 3 cm hypodense observation in the right adnexa,best seen on image 70 of series 2. ABDOMEN and PELVIS: Intraperitoneal space: Small amount of free fluid, most prominently inthe upper abdomen with associated mesenteric edema and stranding. Traceamount of pneumoperitoneum. Bones/joints: Severe spray artifact from bilateral hip arthroplasties,which appear well situated on the final canoe inspector radiograph. Degenerative changesin the lumbar spine. Soft tissues: Heterotopic ossification in the left lateral buttockregion. Vasculature: Unremarkable. Lymph nodes: Borderline prominent retroperitoneal and mesenteric lymphnodes. IMPRESSION: Prior studies are not available for direct comparison. Approximately 4.9 x 3 cm thick-walled extraluminal fluid collection withinternal gas and adjacent inflammatory changes along the anterior aspectof the stomach, best seen on image 23 of series 2. Small amount ofpneumoperitoneum. Findings are concerning for abscess/leak. Small amount of free fluid. Additional 2.7 x 1.8 cm fluid pocket with internal gas bubbles along theanterior aspect of the caudate lobe and 5.4 x 1.9 cm fluid collection withfaint rim enhancement in the low pelvis, best seen on image 70 of series2, suspicious for early abscesses. Gastric bypass surgery changes. No bowel obstruction. Mild intrahepatic duct dilatation may be related to cholecystectomy. A Critical finding has been communicated to Radiology Sanding Machine Tender forprovider notification via the ManagerComplete Actionable FindingsApplication on 10/01/2024 3:19 PM, Message ID [id number]. Bertin Guillory MD IMG CT ORDERABLES Final Result * (ABNORMAL) Complete Blood Count WITHOUT Differential - Early AM (09/23/2024 5:56 AM EDT) Only the most recent of5 resultswithin the time period is included. White Blood Cell Count 9.7 4.0 - 11.0 Thou/uL 09/23/2024 6:04 AM EDT [facility] Platelet Count 262 150 - 450 Thou/uL 09/23/2024 6:04 AM T [facility] Hemoglobin 11.5(L) 11.7 - 15.7 g/dL 09/23/2024 6:04 AM EDT [facility] Hematocrit 34.5(L) 35.0 - 47.0 % 09/23/2024 6:04 AM EDT [facility] Red Blood Cell Count 3.69(L) 4.00 - 5.40 Mil/uL 09/23/2024 6:04 AM T [facility] MCV 94 80 - 100 fL 09/23/2024 6:04 AM T [facility] MCH 31.2(H) 27.0 - 31.0 pg 09/23/2024 6:04 AM [facility] MCHC 33.3 30.0 - 36.0 g/dL 09/23/2024 6:04 AM [facility] RDW 13.5 11.5 - 14.5 % 09/23/2024 6:04 AM [facility] MPV 9.4 7.5 - 12.5 fL 09/23/2024 6:04 AM [facility] Blood Blood specimen / Unknown 09/23/2024 5:56 AM EDT 09/23/2024 6:00 AM EDT us Dorian Hurt MD LAB BLOOD ORDERABLES Final Res ult [facility] [address] [facility] [address] [place] [address], [facility] [address] [facility] [address] [place] [address] * (ABNORMAL) Comprehensive Metabolic Panel (09/23/2024 5:56 AM EDT) [facility] Glucose 96 65 - 99 mg/dL 09/23/2024 6:19 AM T [facility] Comment:Fasting: <100 mg/dL, Non-Fasting: <200 mg/dL (ADA 2004) Blood Urea Nitrogen (BUN) 7(L) 8 - 21 mg/dL 09/23/2024 6:19 AM [facility] Creatinine 0.7 0.4 - 1.1 mg/dL 09/23/2024 6:19 AM [facility] eGFR >90 >59 09/23/2024 6:19 AM [facility] Comment:CKD-EPI (2020) in mL /min/1.73 sq meters. Sodium 133(L) 136 - 145 mmol/L 09/23/2024 6:19 AM [facility] Potassium 3.6 3.4 - 5.3 mmol/L 09/23/2024 6:19 AM [facility] Chloride 97(L) 98 - 107 mmol/L 09/23/2024 6:19 AM [facility] CO2 24 22 - 33 mmol/L 09/23/2024 6:19 AM [facility] Calcium 8.5(L) 8.7 - 10.5 mg/dL 09/23/2024 6:19 AM [facility] Alkaline Phosphatase 192(H) 32 - 122 U/L 09/23/2024 6:19 AM [facility] Aspartate Aminotrans (AST) 66(H) 10 - 50 U/L 09/23/2024 6:19 AM [facility] Alanine Aminotrans (ALT) 59(H) 10 - 50 U/L 09/23/2024 6:19 AM [facility] Bilirubin, Total 0.5 0.2 - 1.0 mg/dL 09/23/2024 6:19 AM [facility] Protein, Total 6.3 6.3 - 8.3 g/dL 09/23/2024 6:19 AM [facility] Albumin 3.2(L) 3.4 - 4.8 g/dL 09/23/2024 6:19 AM [facility] BUN/Creatinine Ratio 10 10.0 - 25.0 Ratio 09/23/2024 6:19 AM [facility] Globulin 3.1 1.5 - 3.9 g/dL 09/23/2024 6:19 AM EDT [facility] Albumin/Globulin Ratio 1.0 1.0 - 1.8 Ratio 09/23/2024 6:19 AM EDT [facility] Anion Gap 12 4 - 16 09/23/2024 6:19 AM EDT [facility] Blood Blood specimen / Unknown 09/23/2024 5:56 AM EDT 09/23/2024 6:00 AM EDT us Dorian Hurt MD LAB BLOOD ORDERABLES Final Res ult [facility] [address] [facility] [address] [place] [address], [facility] [address] [facility] [address] [place] [address] * XR Chest 2 views (09/22/2024 8:55 AM EDT) Anatomical Region Laterality Modality Chest Computed Radiogr aphy 09/22/2024 10:0 8 AM EDT Impressions 09/22/2024 10:10 AM EDT Patchy opacities at the lung bases compatible with pneumonitis. Small zone of consolidation at one of the lung bases suggested on lateral view. Peribronchial cuffing suggests bronchitis. Narrative 09/22/2024 10:10 AM EDT Standing PA & lateral views of the chest. No comparison studies. Low lung volumes. Reticular and airspace opacity across the lower 3rd of the left lung. Question increased reticular opacities at the right base. Possible small zone of consolidation on lateral view at one of the posterior lung bases. Upper lungs are clear. Mild peribronchial cuffing. No pneumothorax, pleural fluid, or vascular congestion. Normal heart size. Procedure Note Kranthi Rutherford MD - 09/22/2024 Standing PA & lateral views of the chest. No comparison studies. Low lung volumes. Reticular and airspace opacity across the lower 3rd of the left lung.Question increased reticular opacities at the right base. Possible smallzone of consolidation on lateral view at one of the posterior lungbases. Upper lungs are clear. Mild peribronchial cuffing. No pneumothorax, pleural fluid, or vascular congestion. Normal heart size. IMPRESSION: Patchy opacities at the lung bases compatible with pneumonitis. Small zoneof consolidation at one of the lung bases suggested on lateral view.Peribronchial cuffing suggests bronchitis. us Jeannette Castillo PA-C IMG DIAGNOSTIC IMAGING ORDERABLE S Final Result * Phosphorus (Early AM) (09/22/2024 6:31 AM EDT) Only the most recent of4 resultswithin the time period is included. Phosphorus 2.8 2.7 - 4.5 mg/dL 09/22/2024 7:17 AM EDT [facility] Blood Blood specimen / Unknown 09/22/2024 6:31 AM EDT 09/22/2024 6:48 AM EDT Adriel QUINTEROS LAB BLOOD ORDERABLES Final Result Performing Organization Address City/[facility]/ZIP Co de Phone Number [facility] [address] [facility] [address] [place] [phone], [facility] [address] [facility] [address] [place] [address] * Magnesium (Early AM) (09/22/2024 6:31 AM EDT) Only the most recent of4 resultswithin the time period is included. Magnesium 1.6 1.6 - 2.7 mg/dL 09/22/2024 7:17 AM EDT [facility] Blood Blood specimen / Unknown 09/22/2024 6:31 AM EDT 09/22/2024 6:48 AM EDT Adriel QUINTEROS LAB BLOOD ORDERABLES Final Result Performing Organization Address City/[facility] Co de Phone Number [facility] [address] [facility] [address] [place] [address], [facility] [address] [facility] [address] [place] [phone] * (ABNORMAL) Basic Metabolic Panel (09/22/2024 6:31 AM EDT) Only the most recent of4 resultswithin the time period is included. Glucose 99 65 - 99 mg/dL 09/22/2024 7:17 AM [facility] Comment:Fasting: <100 mg/dL, Non-Fasting: <200 mg/dL (ADA 2004) Blood Urea Nitrogen (BUN) 14 8 - 21 mg/dL 09/22/2024 7:17 AM [facility] LAB Creatinine 0.7 0.4 - 1.1 mg/dL 09/22/2024 7:17 AM [facility] eGFR >90 >59 09/22/2024 7:17 AM [facility] Comment:CKD-EPI (2020) in mL /min/1.73 sq meters. Sodium 136 136 - 145 mmol/L 09/22/2024 7:17 AM [facility] Potassium 4.3 3.4 - 5.3 mmol/L 09/22/2024 7:17 AM [facility] Chloride 101 98 - 107 mmol/L 09/22/2024 7:17 AM [facility] CO2 24 22 - 33 mmol/L 09/22/2024 7:17 AM [facility] Anion Gap 11 4 - 16 09/22/2024 7:17 AM [facility] Calcium 8.5(L) 8.7 - 10.5 mg/dL 09/22/2024 7:17 AM [facility] BUN/Creatinine Ratio 20 10.0 - 25.0 Ratio 09/22/2024 7:17 AM [facility] Blood Blood specimen / Unknown 09/22/2024 6:31 AM EDT 09/22/2024 6:48 AM EDT Adriel QUINTEROS LAB BLOOD ORDERABLES Final Result [facility] [address] [place] [address] [address] [place] [address], [facility] [address] [facility] [address] [place] [address] * LIPASE (09/21/2024 5:58 AM EDT) Lipase 30 13 - 60 U/L 09/21/2024 6:31 AM EDT [facility] Blood Blood specimen / Unknown 09/21/2024 5:58 AM EDT 09/21/2024 6:06 AM EDT Chelsie Hernandes PA LAB BLOOD ORDERABLES Final Result [facility] [address] [facility] [address] [place] [address], [facility] [address] [facility] [address] [place] [id number] * (ABNORMAL) HEPATIC FUNCTION PANEL (09/21/2024 5:58 AM EDT) Only the most recent of2 resultswithin the time period is included. Alkaline Phosphatase 68 32 - 122 U/L 09/21/2024 6:31 AM EDT [facility] Aspartate Aminotrans (AST) 42 10 - 50 U/L 09/21/2024 6:31 AM T [facility] Alanine Aminotrans (ALT) 53(H) 10 - 50 U/L 09/21/2024 6:31 AM EDT [facility] Bilirubin, Total 0.4 0.2 - 1.0 mg/dL 09/21/2024 6:31 AM T [facility] Protein, Total 6.4 6.3 - 8.3 g/dL 09/21/2024 6:31 AM [facility] Albumin 3.0(L) 3.4 - 4.8 g/dL 09/21/2024 6:31 AM T [facility] Bilirubin, Direct 0.2 0.0 - 0.2 mg/dL 09/21/2024 6:31 AM EDT [facility] Globulin 3.4 1.5 - 3.9 g/dL 09/21/2024 6:31 AM EDT [facility] Albumin/Globulin Ratio 0.9(L) 1.0 - 1.8 Ratio 09/21/2024 6:31 AM EDT [facility] Blood Blood specimen / Unknown 09/21/2024 5:58 AM EDT 09/21/2024 6:06 AM EDT Chelsie Hernandes PA LAB BLOOD ORDERABLES Final Result [facility] [address] [facility] [address] [place] [address], [facility] [address] [facility] [address] [place] [address] * Block - Other (09/20/2024 4:16 AM EDT) Narrative Jerardo Adams MD - 09/20/2024 4:16 AM EDT Jerardo Adams MD 09/20/2024 4:16 AM Anesthesia Procedure Note - Block Procedure Patient Name: Yessica Sol : 1960 Patient location: OR Reason for block: post-op pain management Procedure diagnosis: Surgery, elective Performed by: Anesthesiologist Jerardo Adams MD Preanesthetic Checklist Monitors and equipment checked Patient pre-procedure mental status: anesthetized The patient was sedated prior to procedure. Patient state at time: general anesthesia Patient Preprocedure Preparation Skin prep: 2% chlorhexidine-completely dried prior to procedure Hand hygeine performed prior to needle/catheter insertion Sterile barriers in place: Cap, gloves and maskSterile gel used for Ultrasound Procedure Details Block A: TAP - subcostal - single-shot technique Insulated needle, 20 g, 4 in Laterality bilateral Procedure Details Block B: rectus sheath- single-shot technique insulated needle, 20 g, Laterality bilateral Technique(s): ultrasound guided Outcomes Result: successful block Outcome: block complete Patient tolerated procedure well. Additional Comments: Under ultrasound guidance, the muscle groups were identified. Needle was advanced to target fascial plane. Ultrasound was used to visualize the spread of local anesthetic to the target being blocked. Local injected in 5 ml aliquots with negative aspiration prior to each aliquot. A permanent image was recorded and the images were read and interpreted by me. Needle in view at all times. No intraperitoneal puncture seen. us Jerardo Adams MD [place] ANESTHESIA Final Result * ANES INTUBATION (09/20/2024 3:56 AM EDT) Rad Lee CRNA - 09/20/2024 3:56 AM EDT Rad Ruby CRNA 09/20/2024 3:57 AM Anesthesia Procedure Note - Intubation Patient Name: Yessica Sol : 1960 Patient location: OR Referring provider: Bertin Guillory MD Procedure indications: airway protection Procedure diagnosis: Perforated viscus Procedure Start Time: 09/20/2024 2:52 AM Procedure End Time: 09/20/2024 3:09 AM Performed by: Resident/TSO and Anesthesiologist MD Rad Bentley CRNA Chart Verification Airway: airway not difficult Preanesthetic Checklist monitors and equipment checked. Patient's pre-procedure mental status: awake The patient was sedated prior to procedure. Current level of sedation: general anesthesia Airway not difficult - Procedure Details Intubation route: oral Intubation method: video laryngoscopy GS 3 Number of attempts: 1 Patient status for intubation: RSI, sedated and paralyzed Patient position: supine Tube size: 7.0 mm Tube: standard - cuffed, cuff inflated and minimal leak test Cricoid pressure applied Cord visualization: Grade IIa Placement confirmation method: chest rise and ETCO2 monitor Breath sounds: equal bilaterally and absent over the epigastrium ETT to lip: 20 cm Dentition: same as baseline Complications: no complications Additional comments: Smooth RSI with crycoid pressure, DVVC, East atraumatic intubation with MAC #3, cuff inflated, +ETCO2, +BEBS, dc'd cryv pressure Rad Ruby CRNA [place] ANESTHESIA Final Result * LACTIC ACID, PLASMA (09/20/2024 1:33 AM EDT) Lactic Acid 0.8 0.5 - 1.9 mmol/L 09/20/2024 2:30 AM EDT [facility] Blood Blood specimen / Unknown 09/20/2024 1:33 AM EDT 09/20/2024 2:20 AM EDT Alexandrea Ayoub PA-C LAB BLOOD ORDERABLES Final Result [facility] [address] [facility] [address] [place] [address], [facility] [address] [facility] [address] [place] [address] from Last 3 Months Insurance Advance Directives * Full Code (Latest Code Status on File) Date Activated Date Inactivated Comments 09/20/2024 7:01 AM Care Teams Refractory Mixer Relationship Specialty Start Date End Date Eleazar To MD [address] [place] [address] PCP - General Internal Medicine 09/20/24
--- NOTE | 2024-10-01 20:30 | PC.NURSE ---
Patient reports burning sensation in 20 G IV line to R upper arm. IV line noted to be infiltrated and removed. Regulo, ED provider notified. Patient is a difficult stick, plan is to re establish US guided IV line in R arm.
[2024-10-01 20:42] LABS: Appearance Urine Clear; Color Urine Yellow; Glucose Urine UA Negative (Negative); Leukocyte Esterase Urine Negative (Negative); Nitrite Urine Negative (Negative); PH 7.5 (5.0-9.0); Specific Gravity - Urine >= 1.030 (1.005-1.025); Urine Blood Negative (Negative); Urine Ketones Negative (Negative); Urine Protein Negative (Neg-Trace)
--- NOTE | 2024-10-01 20:56 | PM.HPGS ---
History of Present Illness History of Present Illness Date of Service: 10/02/24 Chief complaint: Sepsis Narrative: Yessica Sol is a 64 year old female w hx of GBP 2002 in [place] presented to [facility] 09/18/24 w 1 week of intermittent abdominal pain. CT scan showed edema near the afferent limb, no perforation or obstruction, of note, she had been taking frequent doses of ibuprofen for osteoarthritis. She was offered admission for pain control and GI consult but preferred to go home. She returned 09/19/24 with worsening abdominal pain and repeat CT scan showed free air. She was going to be transferred to a tertiary center but ultimately went to [facility] in [facility]. She was taken to the OR by Dr Bertin Guillory who performed plication of perforated duodenal ulcer. Drain was placed and she recieved several days of IV antibiotics, discharged home on oral augmentin and fluconazole on 08/23/24 for 2 more days. She began to feel unwell approximately 4 days ago with reported fevers. She ultimatley contacted Dr Guillory and repeat CT was ordered today. There was concern for fluid collection or possible abscess on POD 11. Call was placed to our bariatric team and she was brought to [facility] ER. She was found to have sepsis with tachycardia, hyperpyrexia and potential abdominal source of infection. LA was 0.9, BCx were drawn and she was given Vanco and Zosyn. She was found to have leukocytosis w left shift and repeat CT scan was concerning for fluid collection/abscess at the anterior margin of duodenum. No clear evidence of leak. She was admitted to the hospital, kept NPO, given IV fluids, IV analgesia, IV antibiotics. This morning, she feels some bloating in the lower abdomen. She additionally expressed desire to eat and drink. For patient's comfort, she will be given very small amounts of ice chips. It was explained to her the reasons for being kept NPO. She said she is going to consider leaving the hospital against medical advice. She was advised that if she does leave the hospital against medical advice then she should go immediately back to the hospital where she was operated on, in [place]. [facility] Past Medical History Medical History Intestinal perforation Social History Social History Household Members: Spouse Housing: House Do you presently have visiting nurse or other home services: No Unable to assess alcohol history related to: Unknown Alcohol intake: never Patient Tobacco Use Status: Never used Tobacco Smoked in Last 30 Days: No Use of substances other than those prescribed or required for medical reasons: Unknown Currently Displaying Signs/Symptoms of Drug Intoxication Withdrawal: No Have you been hit, kicked, punched, or otherwise hurt by someone within the past year? If so, by whom?: No Do you feel safe in your current relationship?: Yes Is there a partner from a previous relationship who is making you feel unsafe now?: No Are you made to feel afraid or neglected: No Advance Directives: No Advance Directives Information Provided: No Do you have a plan to hurt others: No Plan Recently lost weight without trying: No How much weight loss: Not applicable Eating poorly because of decreased appetite: No Nutrition screen score: 0 Nutrition Risks: No Nutritional Risk Patient : No : No Poor oral hygiene: No Meds Allergies Allergy/AdvReac Type Severity Reaction Status Date / Time muscle relaxers AdvReac Mild panic Uncoded 10/01/24 17:09 Active Medications: Current Medications Hydromorphone HCl (Hydromorphone Hcl 0.5 Mg/0.5 Ml Syringe) 0.25 mg IVPUSH Q4H PRN; Protocol PRN Reason: Pain, Moderate(Pain Scale 4-6) Dextrose/Sodium Chloride (D5ns) 1,000 mls @ 150 mls/hr IVCONT .Q6H40M SARA Dextrose/Lactated Ringer's (D5lr) 1,000 mls @ 150 mls/hr IVCONT .Q6H40M SARA Piperacillin Sod/Tazobactam (Sod 4.5 gm/ Sodium Chloride) 100 mls @ 100 mls/hr IV Q6H SARA Acetaminophen (Ofirmev) 1,000 mg in 100 mls @ 16.7 mls/hr IV .Q6H SARA Metronidazole (Flagyl) 500 mg in 100 mls @ 100 mls/hr IV Q8H SARA Metoclopramide HCl (Metoclopramide Hcl 10 Mg/2 Ml Vial) 10 mg IVPUSH Q6H PRN PRN Reason: Nausea norelief from zofran Ondansetron HCl (Ondansetron Hcl 4 Mg/2 Ml Vial) 4 mg IVPUSH Q8H PRN PRN Reason: Nausea Pantoprazole Sodium (Pantoprazole Sodium 40 Mg/10 Ml Vial) 40 mg IVPUSH BID@0630,1630 COUNT INCLUDES THE [facility] Sodium Chloride (0.9 % Sodium Chloride Flush 3 Ml Syringe) 3 ml IVFLUSH QSHIFT COUNT INCLUDES THE [facility] Home Medications ?Medication ?Instructions ?Recorded ?Confirmed ?Last Taken ?Type gabapentin 300 mg capsule 600 mg PO TID 01/09/22 10/01/24 09/30/24 History lisinopril 10 mg tablet 10 mg PO DAILY 07/25/22 10/01/24 09/17/24 History venlafaxine 75 mg capsule,extended 75 mg PO DAILY 07/25/22 10/01/24 09/30/24 History release 24 hr buprenorphine HCl 8 mg sublingual 8 mg sublingual BID 10/01/24 10/01/24 09/30/24 History tablet esterified 1 tab PO DAILY 10/01/24 10/01/24 09/17/24 History estrogens-methyltestosterone 1.25 mg-2.5 mg tablet furosemide 20 mg tablet 20 mg PO DAILY PRN swelling 10/01/24 10/01/24 09/30/24 History pantoprazole 40 mg tablet,delayed 40 mg PO QAM 10/01/24 10/01/24 09/30/24 History release progesterone micronized 100 mg 100 mg PO DAILY 10/01/24 10/01/24 09/17/24 History capsule venlafaxine 150 mg 150 mg PO DAILY 10/01/24 10/01/24 09/30/24 History capsule,extended release 24 hr Physical Exam Vital Signs: Vital Signs: Last Vital Signs Temp 99.1 F 10/01/24 19:59 Pulse 103 H 10/01/24 19:59 Resp 19 10/01/24 19:59 BP 134/92 H 10/01/24 19:59 Pulse Ox 97 10/01/24 19:59 O2 Del Method Room Air 10/01/24 19:59 BMI result Body Mass Index 41.4 Const: General: cooperative, healthy appearing and no acute distress Orientation/consciousness: patient oriented x3 HEENT: Head: Yes normal to inspection Ears: hearing grossly normal bilaterally General nose exam: Normal external nose present Face and sinus: Yes normal facial exam Eyes: General: appearance normal, both eyes and all related structures Resp: Effort & Inspection: normal respiratory effort Auscultation: clear to auscultation bilaterally Cardio: Rate: regular rate Rhythm: regular rhythm Heart sounds: S1 normal heart sound present and S2 normal heart sound present GI: Inspection: Yes normal to inspection, No distended, Yes incision (Healing laparoscopic incisions) and Yes obesity Palpation (GI): Soft to palpation, nontender and no guarding Auscultation: Hypoactive bowel sounds present Skin: General skin exam: no rashes or lesions noted Neuro: General: patient oriented x3 Extrem: General: No edema Psych: Appearance: grossly normal Mental Status: mental status grossly normal Speech and movement: Normal speech and movement present Affect: normal affect Attitude: cooperative Results Results Labs: Short CBC 10/01/24 Range/Units 17:54 WBC 19.3 H (4.8-10.8) X10*3/uL Hgb 9.7 L D (12.0-16.0) g/dl Hct 27.6 L D (37.0-47.0) % Plt Count 483 H D (160-400) X10*3/uL BMP 10/01/24 17:54 Sodium 134 L Potassium 3.5 D Chloride 100 Carbon Dioxide 26 BUN 6 L Creatinine 0.83 Calcium 8.3 L D Liver Function 10/01/24 Range/Units 17:54 Total Bilirubin 0.5 (0.0-1.0) mg/dL AST 69 H (5-31) U/L ALT 40 H (0-31) U/L Alkaline Phosphatase 137 H (39-117) U/L Albumin 3.4 L (3.5-5.0) g/dL Urine 10/01/24 Range/Units 20:33 Urine Color Yellow Urine Appearance Clear Urine pH 7.5 (5.0-9.0) Ur Specific [place] >= 1.030 H (1.005-1.025) Urine Protein Negative (Neg-Trace) mg/dL Urine Glucose (UA) Negative (Negative) mg/dL Abdomen CT scan report/results: report reviewed and image reviewed Assessment and Plan (1) Abdominal pain: Status: Inactive Patient with history of duodenal ulceration status post plication 09/20/2024 at an outside facility presenting with postoperative fevers. Today is postop day 12. CT scan concerning for collection over the area of previous surgery with extraluminal air, question for perforation or gas producing bacteria. Objectively she is improving on conservative management with NPO status, IV fluids, IV antibiotics. White blood cell count has trended downward and she has not had fevers since midnight. She has not had tachycardia or hypotension. We will continue to manage conservatively. Follow-up labs in the morning. She may have 1/4 cup of ice chips as needed every 4-6 hours for her comfort. Otherwise NPO. Of note, patient was dissatisfied with NPO status and mentioned that she may leave the hospital. She was advised that this would be against medical advice and that if she were to leave the hospital, which is her own decision, she was advised to return to the hospital where she had surgery. (2) Status post gastric bypass for obesity: Status: Acute Patient with a history of gastric bypass dating back to 2002 in [place]. She has not been followed by any bariatric service. Recommendation to her is to establish care with a bariatric service. She had been taking increased doses of ibuprofen which likely was the etiology behind her perforation. She additionally has not been following a meal plan and remains morbidly obese. Plan Case discussed and patient examined with Dr. Cartwright. Quality Stroke Does the patient have a stroke diagnosis?: No VTE Prior VTE?: No VTE Risk Level:: Medical - moderate - high VTE Device Contraindication: N/A - Device Ordered VTE Drug Contraindication: Treatment Not Indicated (potential for surgical intervention) Procedures Date of Service Date of Service: 10/02/24
[2024-10-01] MEDS: Dextrose 5 % and Lactated Ring 1,000 ML 150 ML IVCONT (21:57)
[2024-10-01] MEDS: Pantoprazole Sodium 40 MG/10 ML VIAL IVPUSH (21:57)
--- NOTE | 2024-10-01 22:02 | PHA.MEDREC ---
Pharmacy Consult ? Medication Reconciliation Pharmacy has completed the medication reconciliation. Spoke to patient who knew medication. Blood pressure has been low so she hasnt been taking her lisinopril in a few weeks. She also has held the estrogen/methyltestosterone and progesterone since this all began a few weeks ago. total dose of 225 venlafaxine
[2024-10-01] MEDS: Acetaminophen 1,000 MG/100 ML PIGGYBACK 16.7 MG IV (23:00)
[2024-10-01] MEDS: metroNIDAZOLE/NS 500 MG/100 ML PIGGYBACK 100 MG IV (23:00)
[2024-10-01] MEDS: diazePAM 10 MG/2 ML CARTRIDGE 2.5 MG IVPUSH (23:07)
--- NOTE | 2024-10-01 23:40 | PC.NURSE ---
Dr Harmon at bedside attempting to establish US guided V line with no success. Dr. Harmon inserted 22 G IV line in R hand, IV antibiotics started and infusing without issue.
--- NOTE | 2024-10-02 01:58 | PC.NURSE ---
Patient is currently comfortably resting in a stretcher bed, watching TV, VSS, call grimm in patient's reach.
[2024-10-02 02:18] VITALS: BP 109/73; PULSE 69; RESP 17; TEMP 36.4; O2SAT 93
--- NOTE | 2024-10-02 03:21 | PC.NURSE ---
Patient currently resting in a hospital bed with her eyes closed, RR 15, breathing is even and unlabored, no s/s of distress noted, call light in patient's reach.
[2024-10-02] MEDS: Piperacillin Sodium/Tazobactam 4.5 GM in 0.9 % Sodium Chloride 100 ML IV ×4 (04:11→20:50)
[2024-10-02] MEDS: Acetaminophen 1,000 MG/100 ML PIGGYBACK 16.7 MG IV ×3 (04:12→17:01)
[2024-10-02 04:49] VITALS: TEMP 36.7
[2024-10-02] MEDS: Dextrose 5 % and Lactated Ring 1,000 ML 150 ML IVCONT ×3 (04:50→19:24)
[2024-10-02] MEDS: metroNIDAZOLE/NS 500 MG/100 ML PIGGYBACK 100 MG IV ×3 (05:38→19:35)
[2024-10-02 06:08] VITALS: BMI 45.5
[2024-10-02 06:14] VITALS: BP 121/69; PULSE 82; RESP 18; TEMP 36.8; O2SAT 96
[2024-10-02] MEDS: Pantoprazole Sodium 40 MG/10 ML VIAL IVPUSH ×2 (06:26→17:00)
[2024-10-02] MEDS: diazePAM 10 MG/2 ML CARTRIDGE 2.5 MG IVPUSH ×2 (06:31→19:32)
[2024-10-02 06:53] LABS: MANUAL DIFF FLAG NO
[2024-10-02 06:57] LABS: Basophils Percent Auto 0.3 % (0-2); Eosinophils Absolute Auto 0.2 X10*3/uL (0.0-0.4); Eosinophils Percent Auto 1.4 % (0-4); Hematocrit 27.3 % (37.0-47.0); Hemoglobin 8.9 g/dl (12.0-16.0); Imm Gran Pct Auto 1.4 % (0.0-0.4); Lymphocytes Absolute Auto 0.7 X10*3/uL (1.2-4.9); Lymphocytes Percent Auto 5.1 % (20-40); Mean Corpuscular HGB Conc 32.6 g/dl (31.0-35.0); Mean Corpuscular Hemoglobin 30.5 pg (27.0-33.0); Mean Corpuscular Volume 93.5 fL (80.0-98.0); Mean Platelet Volume 9.6 fL (9.4-12.3); Monocytes Absolute Auto 0.9 X10*3/uL (0.1-1.2); Monocytes Percent Auto 6.1 % (2-11); Neutrophils Absolute Auto 11.9 x10*3/uL (2.0-8.3); Neutrophils Percent Auto 85.7 % (45-73); Platelet Count 442 X10*3/uL (160-400); Red Blood Count 2.92 X10*6/uL (4.20-5.50); Red Cell Distribution Width 13.4 % (11.0-16.0); White Blood Count 13.9 X10*3/uL (4.8-10.8)
[2024-10-02 07:16] LABS: Anion Gap 11 (12-20); Blood Urea Nitrogen 4 mg/dL (9-16); Calcium 8.2 mg/dL (8.4-10.2); Carbon Dioxide 27 mmol/L (22-29); Chloride 103 mmol/L (96-108); Creatinine Clr Calc Pharmacy 99.8; Estimated Glomerular Filt Rate > 60; Glucose Random 122 mg/dL (60-115); Sodium 137 mmol/L (135-145)
[2024-10-02 08:00] VITALS: BP 129/67; PULSE 85; RESP 18; TEMP 36.8; O2SAT 97
[2024-10-02 15:10] VITALS: BP 128/60; PULSE 72; RESP 18; TEMP 36.6; O2SAT 94
--- NOTE | 2024-10-02 15:19 | MHC.CM.PN ---
DX Sepsis HX Gastric Bipass 2002, recent, s/p O.R. perforation of duodenal ulcer @ [facility] in [place]. Patient with Sepsis is now admitted to [facility]. She lives with her spouse. She is independent with all functional mobility. A HCP has been documented. Scanned into EMR with copies to patient. DP home self care. Patient's spouse will provide transportation home.
[2024-10-02] MEDS: Buprenorphine HCL 8 MG TAB.SUBL SUBLINGUAL (15:32)
[2024-10-02 19:09] VITALS: BP 152/72; PULSE 81; RESP 18; TEMP 37.1; O2SAT 96
--- NOTE | 2024-10-02 22:00 | PC.NURSE ---
1899: At change of shift, pt reporting severe headache, ice pack had no effect per pt. 2199: Pt headache continues at 8/10 pain, around the eyes, with no effect from Valium per JUN. Dr. Holloway made aware, new orders given per JUN, Reglan given as first attempt, pt appears to be able to sleep at this time, with RR even and non-labored. Will continue to reassess.
[2024-10-02] MEDS: Metoclopramide HCl 10 MG/2 ML VIAL IVPUSH (22:22)
[2024-10-03] MEDS: Acetaminophen 1,000 MG/100 ML PIGGYBACK 16.7 MG IV ×3 (00:56→19:36)
[2024-10-03] MEDS: 0.9 % Sodium Chloride Flush 3 ML SYRINGE IVFLUSH (00:59)
[2024-10-03] MEDS: Piperacillin Sodium/Tazobactam 4.5 GM in 0.9 % Sodium Chloride 100 ML IV ×4 (03:10→22:43)
[2024-10-03 03:15] VITALS: BP 125/67; PULSE 70; RESP 17; TEMP 36.4; O2SAT 93
[2024-10-03] MEDS: diazePAM 10 MG/2 ML CARTRIDGE 2.5 MG IVPUSH ×3 (03:15→17:59)
[2024-10-03] MEDS: metroNIDAZOLE/NS 500 MG/100 ML PIGGYBACK 100 MG IV ×3 (03:59→21:43)
[2024-10-03] MEDS: Pantoprazole Sodium 40 MG/10 ML VIAL IVPUSH ×2 (06:23→15:35)
[2024-10-03] MEDS: Dextrose 5 % and Lactated Ring 1,000 ML 125 ML IVCONT ×2 (06:30→19:36)
[2024-10-03 07:19] LABS: Basophils Absolute Auto 0.1 X10*3/uL (0.0-0.2); Basophils Percent Auto 0.4 % (0-2); Eosinophils Absolute Auto 0.2 X10*3/uL (0.0-0.4); Eosinophils Percent Auto 1.3 % (0-4); Hematocrit 30.4 % (37.0-47.0); Imm Gran Abs Auto 0.18 X10*3/uL (0.00-0.03); Imm Gran Pct Auto 1.3 % (0.0-0.4); Lymphocytes Absolute Auto 1.3 X10*3/uL (1.2-4.9); Lymphocytes Percent Auto 9.1 % (20-40); MANUAL DIFF FLAG SCAN; Mean Corpuscular HGB Conc 32.9 g/dl (31.0-35.0); Mean Corpuscular Hemoglobin 30.8 pg (27.0-33.0); Mean Corpuscular Volume 93.5 fL (80.0-98.0); Mean Platelet Volume 10.1 fL (9.4-12.3); Monocytes Percent Auto 7.2 % (2-11); Neutrophils Absolute Auto 11.5 x10*3/uL (2.0-8.3); Neutrophils Percent Auto 80.7 % (45-73); PLT CLUMP 1; Red Blood Count 3.25 X10*6/uL (4.20-5.50); Red Cell Distribution Width 13.6 % (11.0-16.0); SCAN SMEAR FLAG 1
[2024-10-03 07:21] LABS: Platelet Count 545 X10*3/uL (160-400); White Blood Count 14.3 X10*3/uL (4.8-10.8)
[2024-10-03 07:24] VITALS: BP 111/72; PULSE 68; RESP 18; TEMP 36.8; O2SAT 94
[2024-10-03 07:37] LABS: Anion Gap 14 (12-20); Blood Urea Nitrogen 3 mg/dL (9-16); Calcium 8.6 mg/dL (8.4-10.2); Carbon Dioxide 26 mmol/L (22-29); Chloride 105 mmol/L (96-108); Creatinine Clr Calc Pharmacy 94.5; Estimated Glomerular Filt Rate > 60; Glucose Random 101 mg/dL (60-115); Potassium 3.8 mmol/L (3.3-5.1); Sodium 141 mmol/L (135-145)
[2024-10-03 07:38] LABS: SLIDE REVIEW VERIFIED
[2024-10-03] MEDS: Buprenorphine HCL 8 MG TAB.SUBL SUBLINGUAL ×2 (09:04→19:37)
--- NOTE | 2024-10-03 10:45 | P.PNGS_ITS ---
Subjective Subjective Date of Service: 10/03/24 Patient reports: no new complaints and diarrhea Interval history: 64-year-old female postop day 13 status post duodenal ulcer perforation plication at an outside facility who presented to the hospital with fever and sepsis on 09/25/2024. Conservative approach with IV antibiotics, IV fluids, IV analgesia and NPO status except scant ice chips for comfort. Overnight events reviewed, patient had significant headache yesterday resolved with 1 dose of Reglan and 2 doses of Valium. Her Subutex sublingual medications was resumed yesterday. This morning, she has no complaints of abdominal pain, just very minor cramping in the left upper quadrant. She has persistent loose stools. She is using her incentive spirometer and ambulating on the floor freely. No fevers or tachycardia overnight. White blood cell count has increased slightly from yesterday. Physical Exam 2 Vital Signs: Vital Signs: Last Vital Signs Temp 98.3 F 10/03/24 07:24 Pulse 68 10/03/24 07:24 Resp 18 10/03/24 07:24 BP 111/72 10/03/24 07:24 Pulse Ox 94 10/03/24 07:24 O2 Del Method Room Air 10/03/24 07:24 BMI result Body Mass Index 45.5 Const: General: healthy appearing and no acute distress Resp: Effort & Inspection: normal respiratory effort Auscultation: clear to auscultation bilaterally Cardio: Rate: regular rate Rhythm: regular rhythm GI: Palpation (GI): Soft to palpation and nontender Auscultation: H ypoactive bowel sounds present Extrem: Other: Slight pedal edema Objective Data Active Medications Buprenorphine HCl (Buprenorphine Hcl 8 Mg Tab.Subl) 8 mg SUBLINGUAL DAILY [facility] Last Admin: 10/03/24 09:04 Dose: 8 mg Documented By: JODY Diazepam (Diazepam 10 Mg/2 Ml Cartridge) 2.5 mg IVPUSH Q6H PRN PRN Reason: Anxiety Last Admin: 10/03/24 03:15 Dose: 2.5 mg Documented By: ENZO Dextrose/Lactated Ringer's (D5lr) 1,000 mls @ 125 mls/hr IVCONT .Q8H [facility] Last Admin: 10/03/24 06:30 Dose: 125 mls/hr Documented By: ENZO Acetaminophen (Ofirmev) 1,000 mg in 100 mls @ 16.7 mls/hr IV .Q6H [facility] Last Infusion: 10/03/24 09:49 Dose: Infused Documented By: JODY Metronidazole (Flagyl) 500 mg in 100 mls @ 100 mls/hr IV Q8H [facility] Last Infusion: 10/03/24 04:56 Dose: Infused Documented By: ENZO Piperacillin Sod/Tazobactam (Sod 4.5 gm/ Sodium Chloride) 100 mls @ 100 mls/hr IV Q6H [facility] Last Infusion: 10/03/24 10:42 Dose: Infused Documented By: JODY Metoclopramide HCl (Metoclopramide Hcl 10 Mg/2 Ml Vial) 10 mg IVPUSH Q6H PRN PRN Reason: Nausea norelief from zofran Last Admin: 10/02/24 22:22 Dose: 10 mg Documented By: ENZO Ondansetron HCl (Ondansetron Hcl 4 Mg/2 Ml Vial) 4 mg IVPUSH Q8H PRN PRN Reason: Nausea Pantoprazole Sodium (Pantoprazole Sodium 40 Mg/10 Ml Vial) 40 mg IVPUSH BID@0630,1630 [facility] Last Admin: 10/03/24 06:23 Dose: 40 mg Documented By: ENZO Sodium Chloride (0.9 % Sodium Chloride Flush 3 Ml Syringe) 3 ml IVFLUSH QSHIFT [facility] Last Admin: 10/03/24 08:04 Dose: Not Given Documented By: JODY Non-Admin Reason: IV Running Sumatriptan Succinate (Sumatriptan Succinate 6 Mg/0.5 Ml Vial) 6 mg SUBCUT ONCE PRN PRN Reason: Migraine Headache Labs 10/03/24 06:28 10/03/24 06:28 Labs: Laboratory Results - last 24 hr 10/03/24 06:28 MCV 93.5 MCH 30.8 MCHC 32.9 RDW 13.6 Plt Count 545 H MPV 10.1 Immature Gran % (Auto) 1.3 H Neut % (Auto) 80.7 H Lymph % (Auto) 9.1 L [place] % (Auto) 7.2 Eos % (Auto) 1.3 Baso % (Auto) 0.4 Lymph # (Auto) 1.3 [place] # (Auto) 1.0 Eos # (Auto) 0.2 Baso # (Auto) 0.1 Abs Immat Gran (auto) 0.18 H Absolute Neuts (auto) 11.5 H Absolute Nucleated RBC 0.000 Nucleated RBC % (auto) 0.0 Smear Tech's Comments VERIFIED Anion Gap 14 Estim Creat Clear Calc 94.5 Estimated GFR > 60 Random Glucose 101 Calcium 8.6 Microbiology Microbiology Results: Microbiology 10/01/24 17:54 Blood Culture - Preliminary Blood - Venous No growth after 24 hours. 10/01/24 17:50 Blood Culture - Preliminary Blood - Venous No growth after 24 hours. Procedures Date of Service Date of Service: 10/03/24 Progress Note: A&P Assessment and plan (1) Abscess of duodenum: Status: Acute Assessment and Plan: Patient is showing evidence of improvement by way of subjective decreased abdominal pain. Objectively no evidence of tachycardia, hypotension, hyperpyrexia. White blood cell count has increased slightly although this may represent a stress leukemoid reaction as she was significantly stressed yesterday. It is unclear. We will continue to treat conservatively with very minimal ice chips for patient comfort and NPO status. She will get IV fluids, IV analgesia, repeat labs in the morning. Continue IV antibiotics, day 3 of Zosyn and day 2 of metronidazole. She will be scheduled for EGD on Saturday. With regard to her headache last night, this resolved with the use of Reglan and Valium. She does have p.r.n. Imitrex if needed. I spent a proximally 60 minutes talking with the patient and with permission her daughter who was on the phone explaining the case, the prognosis, the direction of care. All questions were answered to the patient and patient's daughter satisfaction. Plan case discussed with Dr Cartwright Time Spent With Patient Time: Total time managing care of this patient today 75 minutes. No Severe Sepsis: No Severe Sepsis Quality Stroke Does the patient have a stroke diagnosis?: No VTE Prior VTE?: No VTE Risk Level:: Medical - moderate - high VTE Device Contraindication: N/A - Device Ordered VTE Drug Contraindication: Treatment Not Indicated (potential for surgical intervention)
[2024-10-03 15:11] VITALS: BP 143/69; PULSE 79; RESP 17; TEMP 36.3; O2SAT 94
--- NOTE | 2024-10-03 15:55 | PC.NURSE ---
Pt reports that she takes her suboxone twice daily. notified and asked this RN to call the pharmacy where it was filled to verify. [facility] pharmacy on [facility] in [place] was contacted and this RN spoke to pharmacy Scarlett who reports that the last time patient filled this medication it was ordered for 2 8mg tablets once daily for a total of 16mg. notified
[2024-10-03 19:01] VITALS: BP 129/86; PULSE 81; RESP 16; TEMP 36.8; O2SAT 93
[2024-10-04] MEDS: Acetaminophen 1,000 MG/100 ML PIGGYBACK 16.7 MG IV ×3 (01:21→21:06)
[2024-10-04] MEDS: Piperacillin Sodium/Tazobactam 4.5 GM in 0.9 % Sodium Chloride 100 ML IV ×4 (02:16→21:06)
[2024-10-04] MEDS: diazePAM 10 MG/2 ML CARTRIDGE 2.5 MG IVPUSH ×3 (02:43→22:21)
[2024-10-04 03:11] VITALS: BP 137/65; PULSE 74; RESP 18; TEMP 36.1; O2SAT 94
[2024-10-04] MEDS: Dextrose 5 % and Lactated Ring 1,000 ML 125 ML IVCONT (03:27)
[2024-10-04] MEDS: Pantoprazole Sodium 40 MG/10 ML VIAL IVPUSH ×2 (05:58→15:52)
[2024-10-04] MEDS: metroNIDAZOLE/NS 500 MG/100 ML PIGGYBACK 100 MG IV ×3 (06:06→22:02)
[2024-10-04 07:21] VITALS: BP 136/65; PULSE 78; RESP 18; TEMP 36.3; O2SAT 94
[2024-10-04] MEDS: 0.9 % Sodium Chloride Flush 3 ML SYRINGE IVFLUSH ×2 (08:22→15:50)
[2024-10-04] MEDS: Buprenorphine HCL 8 MG TAB.SUBL SUBLINGUAL ×2 (08:22→20:07)
[2024-10-04 09:11] LABS: MANUAL DIFF FLAG NO
--- NOTE | 2024-10-04 09:13 | P.PNGS_ITS ---
Subjective Subjective Date of Service: 10/04/24 Patient reports: no new complaints and diarrhea Interval history: 64-year-old female postop day 14 status post duodenal ulcer perforation plication at an outside facility who presented to the hospital with fever and sepsis on 09/25/2024. Conservative approach with IV antibiotics, IV fluids, IV analgesia and NPO status except scant ice chips for comfort. Overnight events reviewed, patient had anxiety yesterday treated with p.r.n. Valium. She additionally has persistent loose stools although no significant malodor to suggest Clostridium difficile infection. This morning, she has no complaints of abdominal pain, just very minor cramping in the left upper quadrant. She has persistent loose stools. She is using her incentive spirometer and ambulating on the floor freely. No fevers or tachycardia overnight. White blood cell count has trended downward, 11 today. Physical Exam 2 Vital Signs: Vital Signs: Last Vital Signs Temp 97.4 F 10/04/24 07:21 Pulse 78 10/04/24 07:21 Resp 18 10/04/24 07:21 BP 136/65 10/04/24 07:21 Pulse Ox 94 10/04/24 07:21 O2 Del Method Room Air 10/04/24 07:21 BMI result Body Mass Index 45.5 Const: General: no acute distress and anxious Orientation/consciousness: p atient oriented x3 Resp: Effort & Inspection: normal respiratory effort Auscultation: clear to auscultation bilaterally Cardio: Rate: regular rate Rhythm: regular rhythm GI: Palpation (GI): Soft to palpation and nontender Auscultation: normal bowel sounds Neuro: General: patient oriented x3 Extrem: Other: 1 + edema Objective Data Active Medications Buprenorphine HCl (Buprenorphine Hcl 8 Mg Tab.Subl) 8 mg SUBLINGUAL BID [facility] Last Admin: 10/04/24 08:22 Dose: 8 mg Documented By: JODY Diazepam (Diazepam 10 Mg/2 Ml Cartridge) 2.5 mg IVPUSH Q6H PRN PRN Reason: Anxiety Last Admin: 10/04/24 02:43 Dose: 2.5 mg Documented By: ENZO Dextrose/Lactated Ringer's (D5lr) 1,000 mls @ 125 mls/hr IVCONT .Q8H [facility] Last Admin: 10/04/24 08:30 Dose: Not Given Documented By: JODY Non-Admin Reason: IV Running Acetaminophen (Ofirmev) 1,000 mg in 100 mls @ 16.7 mls/hr IV .Q6H [facility] Last Admin: 10/04/24 08:22 Dose: 16.7 mls/hr Documented By: JODY Metronidazole (Flagyl) 500 mg in 100 mls @ 100 mls/hr IV Q8H [facility] Last Infusion: 10/04/24 07:59 Dose: Infused Documented By: JODY Piperacillin Sod/Tazobactam (Sod 4.5 gm/ Sodium Chloride) 100 mls @ 100 mls/hr IV Q6H [facility] Last Admin: 10/04/24 08:23 Dose: 100 mls/hr Documented By: JODY Metoclopramide HCl (Metoclopramide Hcl 10 Mg/2 Ml Vial) 10 mg IVPUSH Q6H PRN PRN Reason: Nausea norelief from zofran Last Admin: 10/02/24 22:22 Dose: 10 mg Documented By: ENZO Ondansetron HCl (Ondansetron Hcl 4 Mg/2 Ml Vial) 4 mg IVPUSH Q8H PRN PRN Reason: Nausea Pantoprazole Sodium (Pantoprazole Sodium 40 Mg/10 Ml Vial) 40 mg IVPUSH BID@0630,1630 [facility] Last Admin: 10/04/24 05:58 Dose: 40 mg Documented By: ENZO Sodium Chloride (0.9 % Sodium Chloride Flush 3 Ml Syringe) 3 ml IVFLUSH QSHIFT [facility] Last Admin: 10/04/24 08:22 Dose: 3 ml Documented By: JODY Sumatriptan Succinate (Sumatriptan Succinate 6 Mg/0.5 Ml Vial) 6 mg SUBCUT ONCE PRN PRN Reason: Migraine Headache Labs 10/03/24 06:28 10/03/24 06:28 Microbiology Microbiology Results: Microbiology 10/01/24 17:54 Blood Culture - Preliminary Blood - Venous No growth after 48 hours. 10/01/24 17:50 Blood Culture - Preliminary Blood - Venous No growth after 48 hours. Procedures Date of Service Date of Service: 10/04/24 Progress Note: A&P Assessment and plan (1) Abscess of duodenum: Status: Acute Assessment and Plan: Postop day 14, status post repair of duodenal ulcer at an outside facility. Hospital day 3., admission for fever and sepsis. Day 4 of Zosyn and day 3 of metronidazole, both IV. Remains NPO except scant ice chips for comfort. Continues on IV fluids, analgesia, anxiolytic and IV antibiotics. Plan for EGD tomorrow with further recommendations based upon findings intraoperatively. Diarrhea most likely from p.o. contrast that she had, 2 studies a couple of days ago. This should resolve spontaneously. Additionally, of note, patient stated that she takes Subutex 8 mg b.i.d.. Her prescription is written as 16 mg daily, she states that she has been taking 8 mg twice daily for years. This was discussed with pharmacy and rather than give her 16 mg at once, we elected to dispense at 8 mg b.i.d.. In discussion with the patient this morning, she states that she gets her prescription from a Dr. Garcia in [place]. I explained to her that if the prescription is written as 16 mg once a day and she is taking 8 mg twice a day, she needs to alert her physician and have the prescription changed. Follow-up labs in the morning. Plan Case discussed with Dr. Cartwright. Time Spent With Patient Time: Total time managing care of this patient today ____ minutes. Quality Stroke Does the patient have a stroke diagnosis?: No VTE Prior VTE?: No VTE Risk Level:: Medical - moderate - high VTE Device Contraindication: N/A - Device Ordered VTE Drug Contraindication: Treatment Not Indicated (potential for surgical intervention)
[2024-10-04 09:15] LABS: Basophils Percent Auto 0.4 % (0-2); Eosinophils Absolute Auto 0.2 X10*3/uL (0.0-0.4); Eosinophils Percent Auto 1.5 % (0-4); Hematocrit 30.8 % (37.0-47.0); Hemoglobin 10.2 g/dl (12.0-16.0); Imm Gran Abs Auto 0.25 X10*3/uL (0.00-0.03); Imm Gran Pct Auto 2.3 % (0.0-0.4); Lymphocytes Percent Auto 8.7 % (20-40); Mean Corpuscular HGB Conc 33.1 g/dl (31.0-35.0); Mean Corpuscular Hemoglobin 30.7 pg (27.0-33.0); Mean Corpuscular Volume 92.8 fL (80.0-98.0); Mean Platelet Volume 9.5 fL (9.4-12.3); Monocytes Absolute Auto 0.7 X10*3/uL (0.1-1.2); Monocytes Percent Auto 6.4 % (2-11); Neutrophils Absolute Auto 8.9 x10*3/uL (2.0-8.3); Neutrophils Percent Auto 80.7 % (45-73); Platelet Count 567 X10*3/uL (160-400); Red Blood Count 3.32 X10*6/uL (4.20-5.50); Red Cell Distribution Width 13.4 % (11.0-16.0)
[2024-10-04 09:44] LABS: Anion Gap 14 (12-20); Blood Urea Nitrogen < 3 mg/dL (9-16); Calcium 8.6 mg/dL (8.4-10.2); Carbon Dioxide 23 mmol/L (22-29); Chloride 108 mmol/L (96-108); Creatinine Clr Calc Pharmacy 105.7; Estimated Glomerular Filt Rate > 60; Glucose Random 117 mg/dL (60-115); Potassium 3.4 mmol/L (3.3-5.1); Sodium 142 mmol/L (135-145)
[2024-10-04] MEDS: Dextrose 5 % and Lactated Ring 1,000 ML 100 ML IVCONT ×2 (12:18→21:08)
[2024-10-04 15:13] VITALS: BP 147/67; PULSE 70; RESP 16; TEMP 36.3; O2SAT 97
[2024-10-04 20:00] VITALS: BP 133/90; PULSE 82; RESP 19; TEMP 36.8; O2SAT 95
--- NOTE | 2024-10-04 23:51 | PC.NURSE ---
Pt anxious requesting something to relax her medicated at 2014 with valium 2.5mg IV not due until 214.Krunal QUINTEROS notified ordered to give extra dose now x1.Medicated with valium 2.5mg IV at 2219.
[2024-10-05] MEDS: Piperacillin Sodium/Tazobactam 4.5 GM in 0.9 % Sodium Chloride 100 ML IV ×2 (02:26→08:38)
[2024-10-05] MEDS: Acetaminophen 1,000 MG/100 ML PIGGYBACK 16.7 MG IV ×2 (02:26→08:31)
[2024-10-05 03:27] VITALS: BP 128/60; PULSE 76; RESP 20; TEMP 36.7; O2SAT 95
[2024-10-05] MEDS: diazePAM 10 MG/2 ML CARTRIDGE 2.5 MG IVPUSH ×2 (04:11→10:16)
[2024-10-05] MEDS: metroNIDAZOLE/NS 500 MG/100 ML PIGGYBACK 100 MG IV ×2 (04:12→12:53)
[2024-10-05] MEDS: Dextrose 5 % and Lactated Ring 1,000 ML 125 ML IVCONT ×2 (04:20→12:53)
[2024-10-05] MEDS: ondansetron HCL 4 MG/2 ML VIAL IVPUSH (05:59)
[2024-10-05] MEDS: Pantoprazole Sodium 40 MG/10 ML VIAL IVPUSH (05:59)
[2024-10-05 06:17] LABS: Basophils Absolute Auto 0.1 X10*3/uL (0.0-0.2); Basophils Percent Auto 0.6 % (0-2); Eosinophils Absolute Auto 0.2 X10*3/uL (0.0-0.4); Eosinophils Percent Auto 2.1 % (0-4); Hematocrit 28.1 % (37.0-47.0); Hemoglobin 9.1 g/dl (12.0-16.0); Imm Gran Abs Auto 0.26 X10*3/uL (0.00-0.03); Imm Gran Pct Auto 2.5 % (0.0-0.4); Lymphocytes Absolute Auto 1.1 X10*3/uL (1.2-4.9); Lymphocytes Percent Auto 10.8 % (20-40); MANUAL DIFF FLAG SCAN; Mean Corpuscular HGB Conc 32.4 g/dl (31.0-35.0); Mean Corpuscular Hemoglobin 30.5 pg (27.0-33.0); Mean Corpuscular Volume 94.3 fL (80.0-98.0); Mean Platelet Volume 9.7 fL (9.4-12.3); Monocytes Absolute Auto 0.8 X10*3/uL (0.1-1.2); Monocytes Percent Auto 7.5 % (2-11); Neutrophils Absolute Auto 7.8 x10*3/uL (2.0-8.3); Neutrophils Percent Auto 76.5 % (45-73); Platelet Count 535 X10*3/uL (160-400); Red Blood Count 2.98 X10*6/uL (4.20-5.50); Red Cell Distribution Width 13.4 % (11.0-16.0); SCAN SMEAR FLAG 1; White Blood Count 10.2 X10*3/uL (4.8-10.8)
[2024-10-05 06:25] LABS: Anion Gap 11 (12-20); Blood Urea Nitrogen < 3 mg/dL (9-16); Calcium 8.2 mg/dL (8.4-10.2); Carbon Dioxide 28 mmol/L (22-29); Chloride 108 mmol/L (96-108); Creatinine Clr Calc Pharmacy 104.1; Estimated Glomerular Filt Rate > 60; Glucose Random 119 mg/dL (60-115); Potassium 3.6 mmol/L (3.3-5.1); Sodium 143 mmol/L (135-145)
[2024-10-05 07:06] LABS: SLIDE REVIEW VERIFIED
[2024-10-05 07:37] VITALS: BP 126/76; PULSE 74; RESP 18; TEMP 36.6; O2SAT 94
--- NOTE | 2024-10-05 07:46 | P.PNGS_ITS ---
Subjective Subjective Date of Service: 10/05/24 Patient reports: diarrhea and other (anxious) Interval history: 64-year-old female postop day 15 status post duodenal ulcer perforation plication at an outside facility who presented to the hospital with fever and sepsis on 09/25/2024. Conservative approach with IV antibiotics, IV fluids, IV analgesia and NPO status except scant ice chips for comfort. Overnight events reviewed, patient had anxiety yesterday and yesterday evening, treated with p.r.n. Valium. She additionally has persistent loose stools likely from CT oral contrast. This morning, she has no complaints of abdominal pain, although she had an episode of gagging with some nausea after sneezing. She has persistent loose stools. She is using her incentive spirometer and ambulating on the floor freely. No fevers or tachycardia overnight. White blood cell count has continued to trend downard. Physical Exam 2 Vital Signs: Vital Signs: Last Vital Signs Temp 97.9 F 10/05/24 07:37 Pulse 74 10/05/24 07:37 Resp 18 10/05/24 07:37 BP 126/76 10/05/24 07:37 Pulse Ox 94 10/05/24 07:37 O2 Del Method Room Air 10/05/24 07:37 BMI result Body Mass Index 45.5 Const: General: comfortable and no acute distress O rientation/consciousness: patient oriented x3 Resp: Effort & Inspection: normal respiratory effort GI: Palpation (GI): Soft to palpation and not firm Neuro: General: patient oriented x3 Objective Data Active Medications Buprenorphine HCl (Buprenorphine Hcl 8 Mg Tab.Subl) 8 mg SUBLINGUAL BID [facility] Last Admin: 10/04/24 20:07 Dose: 8 mg Documented By: JOSÉ MIGUEL Diazepam (Diazepam 10 Mg/2 Ml Cartridge) 2.5 mg IVPUSH Q6H PRN PRN Reason: Anxiety Last Admin: 10/05/24 04:11 Dose: 2.5 mg Documented By: JOSÉ MIGUEL Dextrose/Lactated Ringer's (D5lr) 1,000 mls @ 125 mls/hr IVCONT .Q8H [facility] Last Admin: 10/05/24 04:20 Dose: 125 mls/hr Documented By: JOSÉ MIGUEL Acetaminophen (Ofirmev) 1,000 mg in 100 mls @ 16.7 mls/hr IV .Q6H [facility] Last Admin: 10/05/24 02:26 Dose: 16.7 mls/hr Documented By: JOSÉ MIGUEL Metronidazole (Flagyl) 500 mg in 100 mls @ 100 mls/hr IV Q8H [facility] Last Infusion: 10/05/24 05:18 Dose: Infused Documented By: JOSÉ MIGUEL Piperacillin Sod/Tazobactam (Sod 4.5 gm/ Sodium Chloride) 100 mls @ 100 mls/hr IV Q6H [facility] Last Infusion: 10/05/24 03:31 Dose: Infused Documented By: JOSÉ MIGUEL Metoclopramide HCl (Metoclopramide Hcl 10 Mg/2 Ml Vial) 10 mg IVPUSH Q6H PRN PRN Reason: Nausea norelief from zofran Last Admin: 10/02/24 22:22 Dose: 10 mg Documented By: ENZO Ondansetron HCl (Ondansetron Hcl 4 Mg/2 Ml Vial) 4 mg IVPUSH Q8H PRN PRN Reason: Nausea Last Admin: 10/05/24 05:59 Dose: 4 mg Documented By: JOSÉ MIGUEL Pantoprazole Sodium (Pantoprazole Sodium 40 Mg/10 Ml Vial) 40 mg IVPUSH BID@0630,1630 [facility] Last Admin: 10/05/24 05:59 Dose: 40 mg Documented By: JOSÉ MIGUEL Sodium Chloride (0.9 % Sodium Chloride Flush 3 Ml Syringe) 3 ml IVFLUSH QSHIFT [facility] Last Admin: 10/05/24 07:11 Dose: Not Given Documented By: TOSHA Non-Admin Reason: IV Running Sumatriptan Succinate (Sumatriptan Succinate 6 Mg/0.5 Ml Vial) 6 mg SUBCUT ONCE PRN PRN Reason: Migraine Headache Labs 10/05/24 05:30 10/05/24 05:30 Labs: Laboratory Results - last 24 hr 10/04/24 10/05/24 08:55 05:30 MCV 92.8 94.3 MCH 30.7 30.5 MCHC 33.1 32.4 RDW 13.4 13.4 Plt Count 567 H 535 H MPV 9.5 9.7 Immature Gran % (Auto) 2.3 H 2.5 H Neut % (Auto) 80.7 H 76.5 H Lymph % (Auto) 8.7 L 10.8 L [place] % (Auto) 6.4 7.5 Eos % (Auto) 1.5 2.1 Baso % (Auto) 0.4 0.6 Lymph # (Auto) 1.0 L 1.1 L [place] # (Auto) 0.7 0.8 Eos # (Auto) 0.2 0.2 Baso # (Auto) 0.0 0.1 Abs Immat Gran (auto) 0.25 H 0.26 H Absolute Neuts (auto) 8.9 H 7.8 Absolute Nucleated RBC 0.000 0.000 Nucleated RBC % (auto) 0.0 0.0 Smear Tech's Comments VERIFIED Anion Gap 14 11 L Estim Creat Clear Calc 105.7 104.1 Estimated GFR > 60 > 60 Random Glucose 117 H 119 H Calcium 8.6 8.2 L Procedures Date of Service Date of Service: 10/05/24 Progress Note: A&P Assessment and plan (1) Abscess of duodenum: Status: Acute Assessment and Plan: Postop day 15, status post repair of duodenal ulcer at an outside facility. Hospital day 4, admission for fever and sepsis. Day 5 of Zosyn and day 4 of metronidazole, both IV. Remains NPO except scant ice chips for comfort. Continues on IV fluids, analgesia, anxiolytic and IV antibiotics. Plan for EGD today with further recommendations based upon findings. May need repeat CT scan for follow up to previously noted abscess. Pt continues to take prn valium (lorazepam unavailable due to national shortage) for anxiety. Home oral meds remain on hold Plan case discussed with Dr Cartwright Time Spent With Patient Time: Total time managing care of this patient today ____ minutes. Quality Stroke Does the patient have a stroke diagnosis?: No VTE Prior VTE?: No VTE Risk Level:: Medical - moderate - high VTE Device Contraindication: N/A - Device Ordered VTE Drug Contraindication: Treatment Not Indicated (potential for surgical intervention)
[2024-10-05] MEDS: Buprenorphine HCL 8 MG TAB.SUBL SUBLINGUAL (08:30)
--- NOTE | 2024-10-05 14:37 | MHC.CM.PN ---
Addendum entered by Adrienne Rios 10/05/24 16:00: PT LEFT AMA Original Note: PT NOT YET MEDICALLY CLEARED, CURRENT DCP IS HOME CM FOLLOWING FOR CHANGING DC NEEDS
--- NOTE | 2024-10-05 15:30 | P.DS_ITS ---
DS: Providers Provider Date of Service: 10/05/24 Date of admission: 10/01/24 20:32 Date of discharge: 10/05/24 Primary care physician: Unknown Physician DS: Diagnosis Discharge Diagnosis (1) Abscess of duodenum: Status: Acute DS: Summary Hospital Course Hospital Course: Yessica Sol is a 64 year old female w hx of GBP 2002 in [place] presented to [facility] 09/18/24 w 1 week of intermittent abdominal pain. CT scan showed edema near the afferent limb, no perforation or obstruction, of note, she had been taking frequent doses of ibuprofen for osteoarthritis. She was offered admission for pain control and GI consult but preferred to go home. She returned 09/19/24 with worsening abdominal pain and repeat CT scan showed free air. She was going to be transferred to a tertiary center but ultimately went to [facility] in [facility]. She was taken to the OR by Dr Bertin Guillory who performed plication of perforated duodenal ulcer. Drain was placed and she recieved several days of IV antibiotics, discharged home on oral augmentin and fluconazole on 08/23/24 for 2 more days. She began to feel unwell approximately 4 days ago with reported fevers. She ultimatley contacted Dr Guillory and repeat CT was ordered today. There was concern for fluid collection or possible abscess on POD 11. Call was placed to our bariatric team and she was brought to [facility]. She was found to have sepsis with tachycardia, hyperpyrexia and potential abdominal source of infection. LA was 0.9, BCx were drawn and she was given Vanco and Zosyn. She was found to have leukocytosis w left shift and repeat CT scan was concerning for fluid collection/abscess at the anterior margin of duodenum. No clear evidence of leak. She was admitted to the hospital, kept NPO, given IV fluids, IV analgesia, IV antibiotics. While in the hospital, patient remained NPO, she received IV fluids, IV analgesia, IV antibiotics and IV anxiolytics. She received 5 days of Zosyn and 4 days of metronidazole. Her white blood cell count has reduced from 19.3 on admission to 10.2 today. She has not had evidence of fever or tachycardia or hypotension. She did have loose stools although this was felt to be secondary to the oral contrast from her CAT scans. She had no significant abdominal pain although was not challenged orally with anything but scant ice chips for her comfort. Today, on postop day 15, hospital day 4., she was going to be scheduled for endoscopy. Due to surgical emergencies, this needed to be rescheduled for tomorrow. Patient did not want to wait in the hospital any longer and has decided to leave the hospital against medical advice. She will be given Augmentin for 10 more days. Ideally, Levaquin would have been a better choice however given her use of Effexor and risk for QT prolongation as well as tolerance to Augmentin at her previous hospital discharge, Augmentin was the discharge medication of use. We have additionally recommended that she take a 30 g protein shake, 1, 3 times per day and to remain only on liquids until she is seen in follow-up by a bariatric surgeon. She certainly may follow-up in [place] or if she wishes to return to her surgeon in [place], that is her choice. Patient understood the recommendations and we will follow up accordingly. She did state that she will follow-up with her previous surgeon. Status at Discharge Functional status at discharge: independent ambulation Time Attestation Total time managing care of this patient today: 40 mintues. Discharge Coordination Time (in mins): 40 Quality: Safe Use of Opioids Does Pt have an Active Cancer Diagnosis on the Problem List?: No Quality: Stroke Does the patient have a stroke diagnosis?: No Physical Exam Vital Signs: Vital Signs: Last Vital Signs Temp 97.9 F 10/05/24 07:37 Pulse 74 10/05/24 07:37 Resp 18 10/05/24 07:37 BP 126/76 10/05/24 07:37 Pulse Ox 94 10/05/24 07:37 O2 Del Method Room Air 10/05/24 07:37 BMI result Body Mass Index 45.5 DS: Data Data Completed and Pending Labs on day of discharge: Laboratory Results - last 24 hr 10/05/24 05:30 WBC 10.2 RBC 2.98 L Hgb 9.1 L Hct 28.1 L MCV 94.3 MCH 30.5 MCHC 32.4 RDW 13.4 Plt Count 535 H MPV 9.7 Immature Gran % (Auto) 2.5 H Neut % (Auto) 76.5 H Lymph % (Auto) 10.8 L [place] % (Auto) 7.5 Eos % (Auto) 2.1 Baso % (Auto) 0.6 Lymph # (Auto) 1.1 L [place] # (Auto) 0.8 Eos # (Auto) 0.2 Baso # (Auto) 0.1 Abs Immat Gran (auto) 0.26 H Absolute Neuts (auto) 7.8 Absolute Nucleated RBC 0.000 Nucleated RBC % (auto) 0.0 Smear Tech's Comments VERIFIED Sodium 143 Potassium 3.6 Chloride 108 Carbon Dioxide 28 Anion Gap 11 L BUN < 3 L Creatinine 0.69 Estim Creat Clear Calc 104.1 Estimated GFR > 60 Random Glucose 119 H Calcium 8.2 L Preliminary micro results at discharge 10/01/24 17:54 Blood Culture - Preliminary Blood - Venous No growth after 48 hours. 10/01/24 17:50 Blood Culture - Preliminary Blood - Venous No growth after 48 hours. Discharge Plan Discharge Patient Disposition: Left Against Medical Advice Discharge Diagnosis: post op fever, sepsis, abdominal abscess Referrals: Physician,Unknown J [Primary Care Provider, Medical] - 1 Week Discharge Medications: New Augmentin 125-31.25 mg/5 mL suspension for reconstitution 20 ml PO BID 10 Days Qty: 400 0RF Continued venlafaxine 150 mg capsule,extended release 24hr 150 mg PO DAILY Patient Comments: total of 225 pantoprazole 40 mg tablet,delayed release (DR/EC) 40 mg PO QAM estrogens-methyltestosterone 1.25-2.5 mg tablet 1 tab PO DAILY furosemide 20 mg tablet 20 mg PO DAILY PRN (Reason: swelling) progesterone micronized 100 mg capsule 100 mg PO DAILY buprenorphine HCl 8 mg tablet, sublingual 8 mg sublingual BID venlafaxine 75 mg capsule,extended release 24hr 75 mg PO DAILY Patient Comments: total of 225 lisinopril 10 mg tablet 10 mg PO DAILY albuterol sulfate [Ventolin HFA] 90 mcg/actuation HFA aerosol inhaler 1 inh inhalation QID PRN (Reason: shortness of breath or wheezing) Qty: 8.5 1RF gabapentin 300 mg capsule 600 mg PO TID Discharge Orders: Discharge Order (Routine); Ordered 10/05/24 Ordered By: Krunal Holloway Print Language: Honduran Activity Restrictions/Additional Instructions: no solid foods until seen by bariatric surgeon Care Plan Goals: improve outcome s/p post op fever Health Concerns: post op fever s/p repair of duodenal perforation Plan of Treatment: 10 more days of oral antibiotics 30 gm protein shake three times per day no solid food until follow up with bariatric surgeon Assessment: improved since admission
[2024-10-05 15:31] VITALS: BP 153/74; PULSE 72; RESP 18; TEMP 36.4; O2SAT 95
--- NOTE | 2024-10-05 18:48 | PC.NURSE ---
Called Patient on the phone to [employer] at [facility] in [place], Pt states understanding.
== END 2024-10-05 16:04 | disposition left against medical advice (07) | DRG 372 ==
LOC: HO.ED 18:18 → HO.EDOVER 20:59 → HO.S3 10-02 03:46
PROVIDERS: Physician Assistant Medical; Physician Assistant Surgical; Admitting Provider Surgery; Emergency Provider Internal Medicine; PCP Internal Medicine; Visit Provider Surgery
DX: K63.0 Abscess of intestine (principal); F11.20 Opioid dependence, uncomplicated; Z98.84 Bariatric surgery status; Z79.899 Other long term (current) drug therapy
CPT/HCPCS: 36415; 74177; 80048; 80053; 81003; 83605; 83690; 83735; 85025; 87040; 99285; J0131; J0571; J1836; J2405; J2470; J2543; J2765; J3360; J3370; Q9967

== ENCOUNTER → 2024-10-01 17:34 | Outpatient (BNV) | payer OTHER, SELFPAY | PROVIDERS: Admitting Provider Physician Assistant Surgical; Emergency Provider Internal Medicine; Visit Provider Radiology Neuroradiology | DX: K63.0 Abscess of intestine (principal) | CPT/HCPCS: 74177 ==

== ENCOUNTER → 2024-10-01 20:32 | Outpatient (BNV) | payer OTHER, SELFPAY | PROVIDERS: Admitting Provider Surgery; Emergency Provider Internal Medicine; Visit Provider Physician Assistant Surgical | DX: K63.0 Abscess of intestine (principal) | CPT/HCPCS: 99223; 99232; 99233 ==